=== PATIENT | female | born 1940 | race Caucasian/White ===

== ENCOUNTER 2019-06-17 17:05 | Inpatient (IN) | payer MEDICARE, MEDICAID ==
[2019-06-17 18:23] LABS: #Eosinphils 0.2 thou/uL (0.0-0.7); #Monocytes 0.3 thou/uL (0.11-0.59); #Neutrophils 1.7 thou/uL (1.40-6.50); %Basophils 1.5 % (0.0-1.0); %Eosinophils 7.2 % (0.0-10.0); %Neutrophils 52.3 % (42.0-75.0); Hemoglobin 7.1 g/dL (12.0-16.0); Mean Corpuscular HGB CONC 32.9 g/dL (32.0-36.0); Mean Corpuscular Hemoglobin 29.3 pg (27.0-31.0); Mean Platelet Volume 6.7 fL (7.4-10.4); Platelet Count 130 thou/uL (130-400); RBC Distribution Width 13.4 % (11.5-14.5); Red Blood Cell (RBC) Count 2.42 mill/uL (4.20-5.40); White Blood Cell (WBC) Count 3.2 thou/uL (4.8-10.8)
[2019-06-17 18:29] LABS: INR-International Normal Ratio 1.3; PTT 31.9 SEC (22.9-36.1); Prothrombin Time 15.9 SEC (12.0-14.7)
[2019-06-17 18:40] LABS: ALT (SGPT) 11 U/L (8-55); AST (SGOT) 17 U/L (5-34); Albumin 2.8 g/dL (3.4-4.8); Alkaline Phosphatase 106 U/L (40-110); Anion Gap 11 mmol/L (10-20); BUN (Urea Nitrogen) 16 mg/dL (9.8-20.1); Bilirubin, Total 0.3 mg/dL (0.2-1.2); Calc. Creatinine Clearance 0 mL/min (70-130); Calcium 8.2 mg/dL (7.8-10.44); Carbon Dioxide 22 mmol/L (23-31); Chloride 108 mmol/L (98-107); Estimated GFR-MDRD 52; Globulin 3.5 g/dL (2.4-3.5); Glucose 155 mg/dL (83-110); Potassium 4.3 mmol/L (3.5-5.1); Protein, Total 6.3 g/dL (6.0-8.3); Sodium 137 mmol/L (136-145)
[2019-06-17 21:24] LABS: Bacteria/HPF 4+ HPF (None Seen); Bilirubin Negative (Negative); Blood, Urine Negative (Negative); Clarity Turbid (Clear); Glucose, Urine (Dipstick) Normal (Negative); Leukocyte 250 Leu/uL (Negative); Nitrite 2+ (Negative); Protein, Urine (Dipstick) Negative (Neg-Trace); Urobilinogen Normal mg/dL (Less than 2)
[2019-06-17 21:43] LABS: Troponin I 0.011 ng/mL (< 0.028)
[2019-06-17 21:44] VITALS: BMI 32.5
[2019-06-17 23:06] LABS: #Basophils 0.1 thou/uL (0.0-0.2); #Eosinphils 0.4 thou/uL (0.0-0.7); #Lymphocytes 1.4 thou/uL (1.20-3.40); #Monocytes 0.4 thou/uL (0.11-0.59); #Neutrophils 1.9 thou/uL (1.40-6.50); %Basophils 1.2 % (0.0-1.0); %Eosinophils 9.2 % (0.0-10.0); %Monocytes 9.8 % (0.0-10.0); %Neutrophils 46.7 % (42.0-75.0); Hemoglobin 8.4 g/dL (12.0-16.0); Mean Corpuscular HGB CONC 33.4 g/dL (32.0-36.0); Mean Corpuscular Hemoglobin 29.9 pg (27.0-31.0); Mean Corpuscular Volume 89.5 fL (78.0-98.0); Mean Platelet Volume 7.3 fL (7.4-10.4); Platelet Count 143 thou/uL (130-400); RBC Distribution Width 13.4 % (11.5-14.5); Red Blood Cell (RBC) Count 2.81 mill/uL (4.20-5.40); White Blood Cell (WBC) Count 4.1 thou/uL (4.8-10.8)
[2019-06-17 23:24] LABS: Troponin I 0.022 ng/mL (< 0.028)
[2019-06-18] MEDS ORDERED: hydrALAZINE 20 MG/ML VIAL SLOW IVP PRN (01:39)
[2019-06-18] MEDS ORDERED: Ondansetron ODT 4 MG TAB PO PRN (01:39)
[2019-06-18] MEDS ORDERED: Dextrose 50% Abboject 50 ML SYRINGE SLOW IVP PRN (01:39)
[2019-06-18] MEDS ORDERED: Ondansetron PF 4 MG/2 ML Vial IVP PRN (01:39)
[2019-06-18] MEDS ORDERED: Dextrose 5% in Water 1,000 ML IV PRN (01:39)
[2019-06-18] MEDS ORDERED: Gabapentin 100 MG CAP PO SCH (02:15)
[2019-06-18] MEDS ORDERED: rOPINIRole HCl 1 MG TAB PO SCH (02:15)
[2019-06-18] MEDS ORDERED: tiZANidine HCl 4 MG TAB PO SCH (02:15)
[2019-06-18 02:18] LABS: #Basophils 0.1 thou/uL (0.0-0.2); #Eosinphils 0.3 thou/uL (0.0-0.7); #Lymphocytes 1.1 thou/uL (1.20-3.40); #Monocytes 0.4 thou/uL (0.11-0.59); #Neutrophils 2.4 thou/uL (1.40-6.50); %Basophils 1.2 % (0.0-1.0); %Eosinophils 7.1 % (0.0-10.0); %Lymphocytes 25.5 % (21.0-51.0); %Monocytes 9.5 % (0.0-10.0); %Neutrophils 56.7 % (42.0-75.0); Hemoglobin 8.4 g/dL (12.0-16.0); Mean Corpuscular HGB CONC 33.7 g/dL (32.0-36.0); Mean Corpuscular Hemoglobin 30.1 pg (27.0-31.0); Mean Corpuscular Volume 89.1 fL (78.0-98.0); Mean Platelet Volume 6.9 fL (7.4-10.4); Platelet Count 150 thou/uL (130-400); RBC Distribution Width 13.2 % (11.5-14.5); Red Blood Cell (RBC) Count 2.79 mill/uL (4.20-5.40); White Blood Cell (WBC) Count 4.2 thou/uL (4.8-10.8)
[2019-06-18 02:39] LABS: Troponin I Less than 0.010 ng/mL (< 0.028)
[2019-06-18 02:42] LABS: Anion Gap 13 mmol/L (10-20); BUN (Urea Nitrogen) 16 mg/dL (9.8-20.1); Calc. Creatinine Clearance 65 mL/min (70-130); Calcium 8.2 mg/dL (7.8-10.44); Carbon Dioxide 21 mmol/L (23-31); Chloride 109 mmol/L (98-107); Estimated GFR-MDRD 53; Glucose 272 mg/dL (83-110); Sodium 139 mmol/L (136-145)
--- NOTE | 2019-06-18 02:58 | HP ---
PRIMARY CARE PHYSICIAN: Dr. Alvarez in [place]. CHIEF COMPLAINT: Bright red blood per rectum. HISTORY OF PRESENT ILLNESS: Ms. Lee is a very pleasant 79-year-old female who has a history of hypertension, diabetes, and hypothyroidism. She is also functionally bed-bound. However, she does live independently. She is a poor historian, however, and jumps from subject to subject. Therefore, it is very difficult to get a full history, but she says that about 2 days ago, she started noticing bright red blood per rectum. She thought it could be due to her hemorrhoids because she had seen a surgeon who had planned to do hemorrhoid surgery on her, but she says she had put it off due to some dental work that she was having done. However, she says that since Tuesday, the bleeding was much more than she is used to. She says she basically filled the commode with blood four times and when she would try to go to stand up, it would just come through. She says she soaked up two Pull-Ups as well as some pads and as a result, she called EMS to come evaluate her. They suggested that she come to the hospital, which she went to the [facility] in [place]. There, she was found to have a hemoglobin of around 6.1, and she is being transferred here for further evaluation. The patient denies having any abdominal pain. She says it feels "just kind of funny" and they are more like she is anxious. She has had some rectal pain off and on but complains mostly of chronic low back pain and pain in her hips, which she has had for years. Otherwise, no other complaints. REVIEW OF SYSTEMS: All systems were reviewed and are negative, except for that mentioned in the history of present illness. PAST MEDICAL HISTORY: Significant for hypertension, diabetes, seizure-like disorder, hypothyroidism, depressions, scoliosis, chronic low back pain, and restless legs syndrome. PAST SURGICAL HISTORY: She has had multiple back surgeries, two hip surgeries, hysterectomy, cholecystectomy, bilateral tubal ligations, , shoulder replacement surgery, annuloplasty, and cataract surgery. ALLERGIES: TO INVOKANA, PRISTIQ, VYTORIN, BENICAR, CELEBREX, FOSAMAX, AMITRIPTYLINE, METFORMIN, AMLODIPINE, SIMVASTATIN, BENICAR HYDROCHLOROTHIAZIDE, CODEINE, MORPHINE, DIAZEPAM, STATINS, SULFA, AND HYDROCODONE. SOCIAL HISTORY: She is legally from her and lives alone. She would like to be a full code. She lives independently. She is a nonsmoker. She occasionally drinks wine. She is bed bound as previously mentioned, but she can transfer herself and she gets around with the help of assistants who drive for her and she has daily in-home care. FAMILY HISTORY: Significant for leukemia in her mother as well as her oldest son who as a result of this and also diabetes runs in the family. CURRENT MEDICATIONS: Include; 1. Venlafaxine 150 mg at bedtime. 2. Tramadol 50 mg q.6 as needed. 3. Torsemide 20 mg daily. 4. Tizanidine 4 mg p.o. t.i.d. 5. Docusate sodium 8.6 mg 2 tablets at bedtime. 6. Ropinirole 3 mg at bedtime. 7. MiraLAX 17 g twice daily. 8. Nifedipine extended release 30 mg daily. 9. Levothyroxine 125 mcg p.o. daily. 10. Levemir 15 units subcu at bedtime. 11. Gabapentin 100 mg at bedtime. 12. Toviaz 4 mg at bedtime. 13. Duloxetine 30 mg daily. 14. Vitamin D3 of 2000 units p.o. daily. 15. Carvedilol 12.5 mg twice a day. 16. Symbicort 80/4.5 two puffs twice daily. 17. Aspirin 81 mg at bedtime. 18. Ventolin inhaler twice a day. 19. Tylenol 325 mg q.6. PHYSICAL EXAMINATION: GENERAL: She is alert and oriented. She appears to be in no acute distress. VITAL SIGNS: Blood pressure was 111/54, heart rate 78, respiratory rate of 18, temperature is 99.3, and O2 sats 99% on room air. HEENT: Pupils are equal, round, and reactive. Extraocular muscles are intact. Her sclerae are anicteric. Throat, no erythema, no exudates. NECK: No adenopathy. No bruits. LUNGS: Clear. No wheezing. No rales. No rhonchi. CARDIOVASCULAR: She has a normal S1, S2. I did not appreciate an S3 or S4. No murmurs, clicks, or rubs. ABDOMEN: Obese. It is soft, nontender, and nondistended. Positive for bowel sounds. No rebound. No guarding. EXTREMITIES: She has chronic venous stasis changes. Mild erythema, 1 to 2+ pitting edema. Palpable dorsalis pedis pulses. NEUROLOGIC: She has generalized weakness in both lower extremities. Upper extremities are intact. SKIN AND INTEGUMENT: Again, chronic venous stasis changes. LABORATORY RESULTS: Her INR is 1.2. Sodium 136, potassium 4.5, chloride is 107, BUN is 17, creatinine 1.15, and glucose is 222. Hemoglobin 6.7, white blood cell count 4.1, hematocrit is 20.8, and platelet count is 125. ASSESSMENT: 1. This is a pleasant 79-year-old female, who is being admitted for lower gastrointestinal bleed, likely due to diverticulosis versus hemorrhoid disease, although the degree of bleeding seems to be a bit more than what would be expected for hemorrhoidal bleeding. She also has acute blood loss anemia. She will be admitted to telemetry. She has already been transfused [address] her on IV Protonix. Clear liquids until the a.m. and consult GI for further recommendations and monitor H and H serially. 2. Hypertension. She will likely need p.r.n. medications until she is tolerating p.o. 3. Diabetes mellitus. Again, we will place her on a sliding scale insulin and cut her home dose of insulin in half due to low oral intake. 4. Hypothyroidism. She appears to be clinically euthyroid. Continue Synthroid when earliest available. 5. Chronic low back pain and restless legs syndrome. Continue symptom management. Job ID: [id number]
[2019-06-18] MEDS: traMADol HCl 50 MG TAB PO PRN ×4 (04:55→23:51)
[2019-06-18] MEDS: Levothyroxine Sodium 125 MCG TAB PO SCH (04:55)
[2019-06-18] MEDS: Mometasone/Formoterol 120 PUFF INHALER INH SCH ×2 (07:26→19:29)
[2019-06-18] MEDS: PROVENTIL INHALER 6.7 G (200 INHALATIONS) INH SCH ×2 (07:27→19:29)
[2019-06-18] MEDS: Carvedilol 25 MG TAB PO SCH (09:49)
[2019-06-18] MEDS: DULoxetine 30 MG CAP PO SCH (09:50)
[2019-06-18] MEDS: Torsemide 20 MG TAB PO SCH (09:51)
[2019-06-18] MEDS: Polyethylene Glycol 3350 17 GM Packet PO SCH ×2 (09:51→22:00)
[2019-06-18] MEDS: Pantoprazole 40 MG VIAL IVP SCH ×2 (09:51→22:00)
[2019-06-18] MEDS: tiZANidine HCl 4 MG TAB PO SCH ×3 (09:51→22:00)
[2019-06-18] MEDS: Trospium 20 MG TAB PO SCH ×2 (09:51→22:00)
[2019-06-18] MEDS: HumaLOG 300 UNITS/3 ML VIAL SC PRN ×3 (10:26→22:46)
[2019-06-18] MEDS ORDERED: GoLYTELY 4,000 ml Bottle PO SCH (12:00)
--- NOTE | 2019-06-18 14:09 | PDOC.HOSPP ---
- Subjective Encounter Date: 06/18/19 Encounter Time: 10:15 Subjective: pt up in chair no complains of BBPR. - Objective Vital Signs & Weight: Vital Signs (12 hours) Temp Pulse Resp BP Pulse Ox 06/18/19 12:47 98.1 F 95 14 112/57 L 95 06/18/19 08:28 98.9 F 87 16 101/55 L 97 06/18/19 04:10 98.9 F 93 18 91/43 L 96 Weight Admit Weight 207 lb 8 oz Weight 207 lb 8 oz I&O: 06/17/19 06/18/19 06/19/19 06:59 06:59 06:59 Intake Total 500 Output Total 700 Balance -200 Result Diagrams: 06/18/19 02:03 06/18/19 02:03 Additional Labs: Accuchecks 06/18/19 06/18/19 06/17/19 11:14 07:38 21:58 POC Glucose 233 H 209 H 155 H Hospitalist ROS - Review of Systems Cardiovascular: denies: chest pain, palpitations, orthopnea, paroxysmal noc. dyspnea, edema, light headedness, other Gastrointestinal: denies: nausea, vomiting, abdominal pain, diarrhea, constipation, melena, hematochezia, other Genitourinary: denies: dysuria, frequency, incontinence, hematuria, retention, other - Medication Medications: Active Medications Generic Name Dose Route Start Last Admin Trade Name Freq PRN Reason Stop Dose Admin Albuterol Sulfate 2 puff 06/18/19 09:00 06/18/19 07:27 Proventil Hfa INH 2 puff BID SHANTEL Administration Carvedilol 12.5 mg 06/18/19 08:00 06/18/19 09:49 Coreg PO Not Given BID- SHANTEL Duloxetine HCl 30 mg 06/18/19 09:00 06/18/19 09:50 Cymbalta PO 30 mg DAILY SHANTEL Administration Insulin Human Lispro 0 units 06/18/19 01:39 06/18/19 10:26 Humalog SC 4 unit .MODERATE SLIDING SC PRN Administration Moderate Correctional Scale Levothyroxine Sodium 125 mcg 06/18/19 06:00 06/18/19 04:55 Synthroid PO 125 mcg 0600 SHANTEL Administration Mometasone Furoate/Formoterol Fumar 2 puff 06/18/19 06:30 06/18/19 07:26 Dulera 100 Mcg/5 Mcg Inhaler INH 2 puff BID-RT SHANTEL Administration Pantoprazole Sodium 40 mg 06/18/19 09:00 06/18/19 09:51 Protonix IVP 40 mg Q12HR SHANTEL Administration Polyethylene Glycol 17 gm 06/18/19 09:00 06/18/19 09:51 Miralax PO 17 gm BID SHANTEL Administration Tizanidine HCl 4 mg 06/18/19 09:00 06/18/19 09:51 Zanaflex PO 4 mg TID SHANTEL Administration Torsemide 20 mg 06/18/19 09:00 06/18/19 09:51 Demadex PO Not Given DAILY SHANTEL Tramadol HCl 50 mg 06/18/19 04:41 06/18/19 11:56 Ultram PO 50 mg Q6H PRN Administration Pain Trospium 20 mg 06/18/19 09:00 06/18/19 09:51 Trospium PO 20 mg BID SHANTEL Administration - Exam Eye - other findings: pt appear pale Neck: negative: supple, symmetric, no JVD, no thyromegaly, no lymphadenopathy, no carotid bruit, JVD Heart: negative: RRR, no murmur, no gallops, no rubs, normal peripheral pulses, irregular, diminshed peripheral pulses, murmur present, II/IV, III/IV Respiratory: negative: CTAB, no wheezes, no rales, no ronchi, normal chest expansion, no tachypnea, normal percussion, rales, rhonchi, tachypneic, wheezes Hosp A/P (1) Chronic back pain Code(s): M54.9 - DORSALGIA, UNSPECIFIED; G89.29 - OTHER CHRONIC PAIN Status: Chronic (2) DM2 (diabetes mellitus, type 2) Status: Chronic (3) HTN (hypertension) Code(s): I10 - ESSENTIAL (PRIMARY) HYPERTENSION Status: Chronic (4) Bright red blood per rectum Code(s): K62.5 - HEMORRHAGE OF ANUS AND RECTUM Status: Acute - Plan HH has been stable, gi consulted. will continue insulin.
--- NOTE | 2019-06-18 14:54 | CON ---
DATE OF CONSULTATION: 06/18/2019 HISTORY OF PRESENT ILLNESS: Ms. Lee is an 79-year-old female, who was transferred to the hospital here yesterday from [facility] for rectal bleeding. She states she had been started bleeding on Tuesday, which was 3 days ago, the blood was just dripping from the bottom that was bright red. There was no associated pain. In the past, it has been felt this was probably hemorrhoidal. She has been seen by Dr. Root at [facility] in [place] and the plan was to do a hemorrhoidectomy, although she was having some dental work done, so that had been put on hold. With this presentation, as she had quite a bit of bleeding, the patient states Dr. Root was contacted, who saw her at [facility] when she was in emergency room, there was some concern that maybe there was something else bleeding higher up and so the decision was made to transfer her to a facility, where colonoscopy was available. She has had no further bleeding since admission. She denies any pain. She denies any shortness of breath. She denies any heavy use of NSAIDs other than baby aspirin. She does not take any of her blood thinners. She denies any melena or hematemesis, abdominal pain, or weight loss. Presently, she has been transfused and her hemoglobin has increased from 6.7 to 8.4. PAST MEDICAL HISTORY: Chronic back pain, for which she has had multiple surgeries and had an implantable pain pump in her left abdominal wall, this is nonfunctioning at this time, this limits her ability to get around and she cannot walk. History of diabetes, hypertension, hypothyroidism, depression, scoliosis, restless legs syndrome, overactive bladder, chronic constipation, hyperlipidemia, hypertriglyceridemia. PAST SURGICAL HISTORY: She has apparently had a previous hemorrhoidectomy, multiple back surgeries, two hip surgeries, hysterectomy, cholecystectomy, tubal ligation, , shoulder replacement, previous nerve stimulator. REVIEW OF SYSTEMS: The patient denies any chest pain or shortness of breath. There is dyspnea. She does not really walk or exert herself she does not get much exercise due to her immobility. She has a chronic little bit of leg swelling. She has had chronic sores in her back as she is bedbound. ALLERGIES: DOCUMENTED IN THE ADMISSION H AND P, BY DR. KERI VILLANUEVA ON 06/17/2019. SOCIAL HISTORY: She is from her . Lives alone. She is nonsmoker. Occasionally drinks wine. She can transfer herself with the help of assistance. She has in-home care. FAMILY HISTORY: Leukemia in mother and older son. Diabetes runs in the family. MEDICATIONS: Venlafaxine, tramadol, torsemide, tizanidine, dulcolax, Ropinirole, MiraLAX, nifedipine, levothyroxine, Levemir, gabapentin, Toviaz, duloxetine, vitamin D3, carvedilol, Symbicort, aspirin, Ventolin, and Tylenol. PHYSICAL EXAMINATION: GENERAL: She is alert and oriented. She was actually sleeping when I came in, but woke up very quickly. She is able to relate her history. She is in no distress. VITAL SIGNS: Temperature is 98, pulse , blood pressure 105/55. HEENT: Conjunctivae and sclerae are clear. Oropharynx without lesions. NECK: Supple. No adenopathy. ABDOMEN: Soft and nontender. LUNGS: Clear. HEART: Regular rate and rhythm. EXTREMITIES: Reveal brawny edema. She has some mild erythema in her legs. She has a skin dressing on her shins anteriorly and also on her sacrum. RECTAL: Reveals brown stool. No overt large lesions or large hemorrhoids. NEUROLOGIC: Mental status; she is alert and oriented to person, place, and time. LABORATORY DATA: White count is 4.2. Hemoglobin is 8.7, it was 7.1 on arrival here, she received blood for hemoglobin of 6 in [place] before transfer. Platelet count is 150. INR is 1.3. Sodium 139, potassium 4, bicarb is 21, chloride 109, BUN is 16, creatinine is 1.01, albumin was 2.8, protein 6.3. Troponins were negative. Liver function tests were normal. ASSESSMENT: 1. Lower gastrointestinal bleeding, likely rectal outlet in some way. She does not have any large hemorrhoids palpable on rectal examination. No perianal lesions. It is unclear what her baseline hemoglobin was in [place] before all this, but I suspect it probably was not normal as there has been ongoing bleeding before this and talk of hemorrhoid surgery before this as well. She has some brown stool in her rectal vault now and there is no active bleeding. This would make upper GI bleeding much less likely. 2. She is hemodynamically stable presently. 3. Poor mobility, which is going to make it difficult for her to tolerate any bowel preparation. PLAN: I talked with the patient about options including observation as the bleeding has stopped or colonoscopy to try to investigate the cause of bleeding. I have explained her the colonoscopy and the requirement for the prep and the fact that she is bedbound, it is going to make this difficult for her. She would like to go and proceed with that though to figure out if she really needs to even have hemorrhoid surgery, is that her bleeding is coming from something higher up. This is not unreasonable as she has a very benign rectal exam with no overt large hemorrhoids and no perianal lesions to explain the bleeding. We will try to get her a bowel prep and plan for colonoscopy tomorrow. Job ID: [id number]
[2019-06-18] MEDS: Gabapentin 100 MG CAP PO SCH (22:00)
[2019-06-18] MEDS: rOPINIRole HCl 1 MG TAB PO SCH (22:00)
[2019-06-18] MEDS: Venlafaxine HCl XR 150 MG CAP PO SCH (22:00)
[2019-06-18] MEDS: Insulin Glargine 8 UNITS in Pre-Filled Syringe 1 EACH SC SCH (22:47)
[2019-06-19] MEDS: Levothyroxine Sodium 125 MCG TAB PO SCH (04:57)
[2019-06-19] MEDS: traMADol HCl 50 MG TAB PO PRN ×2 (06:13→21:00)
[2019-06-19 07:22] LABS: #Eosinphils 0.4 thou/uL (0.0-0.7); #Lymphocytes 1.1 thou/uL (1.20-3.40); #Monocytes 0.3 thou/uL (0.11-0.59); #Neutrophils 2.3 thou/uL (1.40-6.50); %Basophils 0.9 % (0.0-1.0); %Lymphocytes 26.4 % (21.0-51.0); %Monocytes 7.9 % (0.0-10.0); %Neutrophils 54.7 % (42.0-75.0); Hemoglobin 8.9 g/dL (12.0-16.0); Mean Corpuscular HGB CONC 34.3 g/dL (32.0-36.0); Mean Corpuscular Hemoglobin 31.1 pg (27.0-31.0); Mean Corpuscular Volume 90.6 fL (78.0-98.0); Mean Platelet Volume 6.5 fL (7.4-10.4); Platelet Count 161 thou/uL (130-400); RBC Distribution Width 13.7 % (11.5-14.5); Red Blood Cell (RBC) Count 2.87 mill/uL (4.20-5.40); White Blood Cell (WBC) Count 4.1 thou/uL (4.8-10.8)
[2019-06-19 07:37] LABS: Anion Gap 14 mmol/L (10-20); BUN (Urea Nitrogen) 12 mg/dL (9.8-20.1); Calc. Creatinine Clearance 75 mL/min (70-130); Calcium 8.5 mg/dL (7.8-10.44); Carbon Dioxide 24 mmol/L (23-31); Chloride 104 mmol/L (98-107); Estimated GFR-MDRD 62; Glucose 152 mg/dL (83-110); Potassium 3.7 mmol/L (3.5-5.1); Sodium 138 mmol/L (136-145)
[2019-06-19] MEDS: PROVENTIL INHALER 6.7 G (200 INHALATIONS) INH SCH ×2 (07:45→21:53)
[2019-06-19] MEDS: Mometasone/Formoterol 120 PUFF INHALER INH SCH ×3 (07:45→21:56)
[2019-06-19] MEDS ORDERED: Lidocaine 1% PF 5 ML VIAL ONE (09:43)
[2019-06-19] MEDS ORDERED: PROPOFOL 200 MG/20 ML VIAL ONE (09:43)
[2019-06-19] MEDS ORDERED: Fleet Enema 133 ML BOT PR SCH (09:45)
[2019-06-19] MEDS ORDERED: Ketamine 50 MG/ML (10ML VIAL) ONE (12:06)
--- NOTE | 2019-06-19 12:40 | PDOC.HOSPP ---
- Subjective Encounter Date: 06/19/19 Encounter Time: 10:30 Subjective: pt up in bed no complains. she is nervous about her surgery. - Objective Vital Signs & Weight: Vital Signs (12 hours) Temp Pulse Resp BP Pulse Ox 06/19/19 07:45 97.8 F 76 20 141/64 H 99 06/19/19 03:51 98.2 F 77 17 112/59 L 97 Weight Admit Weight 207 lb 8 oz Weight 207 lb 8 oz I&O: 06/18/19 06/19/19 06/20/19 06:59 06:59 06:59 Intake Total 500 5700 Output Total 700 1650 Balance -200 4050 Result Diagrams: 06/19/19 07:07 06/19/19 07:07 Additional Labs: Accuchecks 06/19/19 06/19/19 06/18/19 10:53 05:23 20:34 POC Glucose 141 H 173 H 201 H 06/18/19 17:12 POC Glucose 221 H Hospitalist ROS - Review of Systems Cardiovascular: denies: chest pain, palpitations, orthopnea, paroxysmal noc. dyspnea, edema, light headedness, other Gastrointestinal: denies: nausea, vomiting, abdominal pain, diarrhea, constipation, melena, hematochezia, other Genitourinary: denies: dysuria, frequency, incontinence, hematuria, retention, other - Medication Medications: Active Medications Generic Name Dose Route Start Last Admin Trade Name Freq PRN Reason Stop Dose Admin Albuterol Sulfate 2 puff 06/18/19 09:00 06/19/19 07:45 Proventil Hfa INH 2 puff BID SHANTEL Administration Carvedilol 12.5 mg 06/18/19 08:00 06/18/19 09:49 Coreg PO Not Given BID-WM SHANTEL Duloxetine HCl 30 mg 06/18/19 09:00 06/18/19 09:50 Cymbalta PO 30 mg DAILY SHANTEL Administration Gabapentin 100 mg 06/18/19 21:00 06/18/19 22:00 Neurontin PO 100 mg HS SHANTEL Administration Insulin Glargine 8 units/ 0.08 mls @ 0 mls/hr 06/18/19 21:00 06/18/19 22:47 Miscellaneous Medication SC 0.08 mls HS SHANTEL Administration Insulin Human Lispro 0 units 06/18/19 01:39 06/18/19 18:02 Humalog SC 4 unit .MODERATE SLIDING SC PRN Administration Moderate Correctional Scale Insulin Human Lispro 0 units 06/18/19 01:39 06/18/19 22:46 Humalog SC 2 unit .BEDTIME SLIDING SC PRN Administration Bedtime Correctional Scale Levothyroxine Sodium 125 mcg 06/18/19 06:00 06/19/19 04:57 Synthroid PO 125 mcg 0600 SHANTEL Administration Mometasone Furoate/Formoterol Fumar 2 puff 06/18/19 06:30 06/19/19 07:45 Dulera 100 Mcg/5 Mcg Inhaler INH 2 puff BID-RT SHANTEL Administration Pantoprazole Sodium 40 mg 06/18/19 09:00 06/18/19 22:00 Protonix IVP 40 mg Q12HR SHANTEL Administration Polyethylene Glycol 17 gm 06/18/19 09:00 06/18/19 22:00 Miralax PO Not Given BID SHANTEL Ropinirole HCl 3 mg 06/18/19 21:00 06/18/19 22:00 Requip PO 3 mg HS SHANTEL Administration Tizanidine HCl 4 mg 06/18/19 09:00 06/18/19 22:00 Zanaflex PO 4 mg TID SHANTEL Administration Torsemide 20 mg 06/18/19 09:00 06/18/19 09:51 Demadex PO Not Given DAILY SHANTEL Tramadol HCl 50 mg 06/18/19 04:41 06/19/19 06:13 Ultram PO 50 mg Q6H PRN Administration Pain Trospium 20 mg 06/18/19 09:00 06/18/19 22:00 Trospium PO 20 mg BID SHANTEL Administration Venlafaxine HCl 150 mg 06/18/19 21:00 06/18/19 22:00 Effexor Xr PO 150 mg HS SHANTEL Administration - Exam Heart: negative: RRR, no murmur, no gallops, no rubs, normal peripheral pulses, irregular, diminshed peripheral pulses, murmur present, II/IV, III/IV Respiratory: negative: CTAB, no wheezes, no rales, no ronchi, normal chest expansion, no tachypnea, normal percussion, rales, rhonchi, tachypneic, wheezes Gastrointestinal: negative: soft, non-tender, non-distended, normal bowel sounds , no palpable masses, no hepatomegaly, no splenomegaly, no bruit, no guarding, no rigidity, tender to palpation, distended, diminished bowl sounds, voluntary guarding Hosp A/P (1) Chronic back pain Code(s): M54.9 - DORSALGIA, UNSPECIFIED; G89.29 - OTHER CHRONIC PAIN Status: Chronic (2) DM2 (diabetes mellitus, type 2) Status: Chronic (3) HTN (hypertension) Code(s): I10 - ESSENTIAL (PRIMARY) HYPERTENSION Status: Chronic (4) Bright red blood per rectum Code(s): K62.5 - HEMORRHAGE OF ANUS AND RECTUM Status: Acute - Plan HH has been stable, gi consulted. will continue insulin. 06/19 hh stable, pt undergoing colonoscopy today.
[2019-06-19] MEDS ORDERED: HYDROmorphone 2 MG/ML VIAL ONE (12:48)
[2019-06-19] MEDS ORDERED: Promethazine HCl 25 MG/ML VIAL IM PRN (13:03)
[2019-06-19] MEDS ORDERED: Ondansetron HCl/PF 4 MG/2 ML Vial IVP PRN (13:03)
[2019-06-19] MEDS ORDERED: Promethazine HCl 25 MG/ML VIAL SLOW IVP PRN (13:03)
[2019-06-19] MEDS ORDERED: HYDROmorphone 2 MG/ML VIAL SLOW IVP PRN (13:03)
[2019-06-19] MEDS: Pantoprazole 40 MG VIAL IVP SCH ×2 (14:56→20:57)
[2019-06-19] MEDS: Polyethylene Glycol 3350 17 GM Packet PO SCH ×2 (14:56→21:00)
[2019-06-19] MEDS: tiZANidine HCl 4 MG TAB PO SCH ×3 (14:57→20:59)
[2019-06-19] MEDS: Trospium 20 MG TAB PO SCH ×2 (14:57→20:57)
[2019-06-19] MEDS: DULoxetine 30 MG CAP PO SCH (15:27)
--- NOTE | 2019-06-19 17:08 | OP ---
DATE OF PROCEDURE: 06/19/2019 ORDER PACKER SURGEON: None. PROCEDURE PERFORMED: Colonoscopy, diagnostic. INDICATIONS: 1. Rectal bleeding. 2. Anemia. MEDICATIONS: See Anesthesia record. FINDINGS: After discussion of the risks, benefits, and alternatives of the procedure, informed consent was obtained and witnessed. Pre-endoscopic cardiopulmonary examination was satisfactory. Time-out was performed before sedation was achieved. Sedation was achieved with Anesthesia assistance in the endoscopy unit. Due to the patient's severe scoliosis, pain and request, we performed the procedure with the patient in the supine position, actually turned a bit to the right. Digital rectal exam was performed and this demonstrated large external hemorrhoids. A Pentax adult colonoscope was inserted into the anus and passed forward in the usual fashion. The quality of the bowel preparation was fair in the left colon and poor in the right colon with a large amount of semi-liquid stool and particulate matter, which made lavage and suctioning of all the stool matter quite difficult. Due to difficulty with the patient positioning as well as the poor quality of the prep, I was unable to definitively identify the appendiceal orifice, though I do estimate that the scope was advanced to the level of the mid ascending colon at least, a distance of 110 cm. The colonoscope was slowly withdrawn in a gradual and circumferential manner with careful examination of the colonic mucosa. There were no mucosal abnormalities demonstrated, within the limits of the patient's poor bowel preparation. There was no evidence of any old blood or active bleeding throughout the colon. There were no mass lesions or polyps visualized. In the sigmoid colon, there were several diverticula, which were nonbleeding. Retroflexion in the rectum demonstrates large internal hemorrhoids. The colonoscope was completely withdrawn and the patient allowed to recover. The patient tolerated the procedure well. There were no immediate postprocedure complications. IMPRESSION: 1. Large internal and external hemorrhoids. 2. Fair bowel preparation of the left colon, and poor bowel preparation in the right colon, examined to the ascending colon, but unable to definitively identify the appendiceal orifice. 3. Sigmoid diverticulosis. 4. Otherwise normal examination, within the limits of the bowel preparation. RECOMMENDATIONS: 1. Use stool softeners 1 to 2 times daily. 2. Advance diet. 3. If overt rectal bleeding and worsening anemia becomes a significant issue, would be reasonable to proceed with surgical evaluation as she already had planned for consideration of hemorrhoidectomy. 4. Follow up with Dr. Culver in the outpatient setting if repeat colonoscopy is desired on an outpatient basis. However, given the patient's debility, comorbidities, it would be reasonable to forego any further colonoscopy in the future. GI will sign off, but please call back anytime with questions or concerns. Job ID: [id number]
[2019-06-19] MEDS: Carvedilol 25 MG TAB PO SCH (17:49)
[2019-06-19] MEDS: HumaLOG 300 UNITS/3 ML VIAL SC PRN ×2 (17:51→21:01)
[2019-06-19] MEDS: Insulin Glargine 8 UNITS in Pre-Filled Syringe 1 EACH SC SCH (20:56)
[2019-06-19] MEDS: Gabapentin 100 MG CAP PO SCH (20:56)
[2019-06-19] MEDS: rOPINIRole HCl 1 MG TAB PO SCH (20:58)
[2019-06-19] MEDS: Venlafaxine HCl XR 150 MG CAP PO SCH (20:59)
[2019-06-20] MEDS: traMADol HCl 50 MG TAB PO PRN ×2 (02:34→10:58)
[2019-06-20] MEDS: Levothyroxine Sodium 125 MCG TAB PO SCH (04:57)
[2019-06-20] MEDS: PROVENTIL INHALER 6.7 G (200 INHALATIONS) INH SCH (07:29)
[2019-06-20] MEDS: Mometasone/Formoterol 120 PUFF INHALER INH SCH (07:29)
[2019-06-20] MEDS: Torsemide 20 MG TAB PO SCH (07:57)
[2019-06-20] MEDS: DULoxetine 30 MG CAP PO SCH (07:57)
[2019-06-20] MEDS: Carvedilol 25 MG TAB PO SCH (07:57)
[2019-06-20] MEDS: Trospium 20 MG TAB PO SCH (07:57)
[2019-06-20] MEDS: tiZANidine HCl 4 MG TAB PO SCH ×2 (07:57→14:23)
[2019-06-20] MEDS: HumaLOG 300 UNITS/3 ML VIAL SC PRN ×2 (07:58→10:59)
[2019-06-20] MEDS: Pantoprazole 40 MG VIAL IVP SCH ×2 (07:58→09:44)
[2019-06-20] MEDS: Polyethylene Glycol 3350 17 GM Packet PO SCH (08:09)
[2019-06-20 11:19] VITALS: BP 111/54; TEMP 97.9
--- NOTE | 2019-06-21 06:00 | PQF ---
[employer] Crystal Reports Winform ToluARELY Fishman KARISHMA [id number] [facility]265 [id number] CLINICAL DOCUMENTATION CLARIFICATION FORM: POST DISCHARGE Addendum to original discharge summary date: ____ Late entry note date: __ DATE: 06/21/2019 ATTN:ESTEFANI ALEJO Please exercise your independent, professional judgment in responding to the clarification form. Clinical indicators are provided on the bottom of this form for your review GIB Etiology Please check appropriate box(s): [ x ] GIB due to internal and external Hemorrhoids [ ] GIB due to Sigmoid diverticulosis [ ] GIB due to unknown etiology [ ] Other diagnosis [ ] Unable to determine In addition, please specify: Present on Admission (POA): [ x] Yes [ ] No [ ] Unable to determine For continuity of documentation, please document condition throughout progress notes and discharge summary. Thank You. CLINICAL INDICATORS - SIGNS / SYMPTOMS / LABS Bright Red Blood per rectum - Documented in h&P on 104 by Jonathan Conn MD she thought it could be due to her hemorrhoids because she had seen damon who had planned to do hemorrhoid surgery on her - Documented in h&P on 104 by Jonathan Conn MD GIB due to diverticulosis vs hemorrhoid disease - Documented in h&P on 104 by Jonathan Conn MD Degree of bleeding seems to be a bit more than what would be expected foe hemorrhoid bleeding - Documented in h&P on 104 by Jonathan Conn MD there is no active bleeding - Documented in Consult note on 06/19 by Sumanth Gandhi RISK FACTORS Lower GIB likely rectal outlet in some way, she does not have large hemorrhoids palpable on rectal exam - Documented in Consult note on 06/19 by Sumanth Gandhi HTN DM TREATMENTS: She has already been transfused 2 units - Documented in h&P on 104 by Jonathan Conn MD we will place her IV Protonix - Documented in h&P on 104 by Jonathan Conn MD Colonoscopy has done - OP note [employer] Reports Winform Viewer (This form is maintained as a part of the permanent medical record) 2014 [employer]. All Rights Reserved [email or web address] [not [email or web address]] [email or web address]
--- NOTE | 2019-06-21 15:25 | DIS ---
DATE OF ADMISSION: 06/17/2019 DATE OF DISCHARGE: 06/20/2019 DISCHARGE DIAGNOSES: 1. Bright blood per rectum, most likely secondary to internal external hemorrhoids. 2. Chronic back pain. 3. Diabetes. 4. Hypertension. HOSPITAL COURSE: The patient is a very pleasant 79-year-old female, who initially presented to the hospital on 06/18, with significant bright blood per rectum. She received a blood transfusion 2 units and she was put on IV Protonix and GI was consulted. The patient continued to improve and her hemoglobin was stable. She did undergo a colonoscopy on 06/19, which did not indicate any source of active bleeding, however, indicated large internal external hemorrhoids. Recommended to use stool softeners, which she is already on. The patient's vitals were stable. She will be discharged home. She will follow up with her primary and also Surgery as outpatient for her hemorrhoid. HOME MEDICATIONS: 1. Tramadol 50 mg q.6 hours. 2. Tizanidine 4 mg t.i.d. 3. Venlafaxine 150 mg at bedtime. 4. Torsemide 20 mg daily. 5. Sennalax-S two tablets at bedtime. 6. MiraLAX 17 g p.o. b.i.d. 7. Nifedipine 1 to 2 capsules daily. 8. Levothyroxine 125 mcg daily. 9. Gabapentin 100 mg at bedtime. 10. Toviaz 4 mg at bedtime. 11. Duloxetine 30 mg daily. 12. Carvedilol 12.5 b.i.d. 13. Tylenol 325 q.6 hours p.r.n. 14. Symbicort two puffs twice a day. 15. Albuterol 2 puffs twice a day. 16. Ropinirole 3 tablets at bedtime. I have advised the patient to check her blood pressure before she takes her blood pressure medications since her blood pressure has been very labile. PHYSICAL EXAMINATION: VITAL SIGNS: On discharge, temp 97.8, pulse 68, respirations 20, 95% on room air, blood pressure 111/54. GENERAL: She is awake, alert, and oriented x3. Does not appear in any distress. CV: S1 and S2 present. No murmurs, rubs, or gallops. ABDOMEN: Soft and nontender. Bowel sounds are present x2. Again, she will be discharged home. She will follow up with her primary. Job ID: [id number]
== END 2019-06-20 15:34 | disposition home or self-care (01) | DRG 394 ==
LOC: ERS 17:05 → 2NO 19:29
PROVIDERS: ADMIT Family Medicine; ATTEND Family Medicine
PROC: 0DJD8ZZ Inspection of Lower Intestinal Tract, Via Natural or Artificial Opening Endoscopic (ICD-10-PCS; principal; 2019-06-19)
DX: K64.4 Residual hemorrhoidal skin tags (principal); K92.2 Gastrointestinal hemorrhage, unspecified; D62 Acute posthemorrhagic anemia; K64.8 Other hemorrhoids; I10 Essential (primary) hypertension; E11.9 Type 2 diabetes mellitus without complications; E03.9 Hypothyroidism, unspecified; Z88.8 Allergy status to other drugs, medicaments and biological substances; Z88.5 Allergy status to narcotic agent; Z74.01 Bed confinement status; G40.909 Epilepsy, unspecified, not intractable, without status epilepticus; F32.9 Major depressive disorder, single episode, unspecified; M54.5 Low back pain; G89.29 Other chronic pain; G25.81 Restless legs syndrome; Z98.51 Tubal ligation status; Z90.49 Acquired absence of other specified parts of digestive tract; Z88.2 Allergy status to sulfonamides; Z79.82 Long term (current) use of aspirin; Z79.899 Other long term (current) drug therapy
CPT/HCPCS: 36415; 36416; 36430; 80048; 80053; 81003; 81015; 84484; 85025; 85610; 85730; 86850; 86900; 86901; C9113; J1170; J1815; J2001; J2405; J2704; P9016

== ENCOUNTER 2019-08-17 16:03 | Inpatient (IN) | payer MEDICARE, MEDICAID ==
[~2019-08-17 16:03] MED LIST: Iopamidol-370 76% 500 ML 1 ML ONE
[2019-08-17 16:32] LABS: Bacteria/HPF 2+ HPF (None Seen); Bilirubin Negative (Negative); Blood, Urine 1+ (Negative); Clarity Clear (Clear); Glucose, Urine (Dipstick) Normal (Negative); Leukocyte 500 Leu/uL (Negative); Nitrite 2+ (Negative); Protein, Urine (Dipstick) Negative (Neg-Trace); RBC/HPF 21-50 HPF (0-3); Squamous Epithelial 0-3 HPF (0-3); Urobilinogen Normal mg/dL (Less than 2); WBC/HPF Greater than 50 HPF (0-3)
[2019-08-17] MEDS ORDERED: Fentanyl 100 MCG/2 ML VIAL ONE (17:02)
--- NOTE | 2019-08-17 17:10 | RAD ---
RADIOGRAPH CHEST 1 VIEW: DATE: 08/17/2019 HISTORY: 79-year-old female with sepsis FINDINGS: Patient is very rotated to the right, limiting evaluation of the right medial lung base. The thoracic aorta is tortuous and ectatic. There is no evidence of airspace density, pulmonary edema, or pneumothorax. The lateral costophrenic angles are not effaced. No interval change compared to 10/10/19 17 and 06/20/2018. IMPRESSION: 1) No acute pulmonary findings. 2) ectasia of thoracic aorta.
[2019-08-17 17:29] LABS: ALT (SGPT) 12 U/L (8-55); AST (SGOT) 37 U/L (5-34); Albumin 3.7 g/dL (3.4-4.8); Alkaline Phosphatase 179 U/L (40-110); Anion Gap 13 mmol/L (10-20); BUN (Urea Nitrogen) 22 mg/dL (9.8-20.1); Bilirubin, Total 0.8 mg/dL (0.2-1.2); Calc. Creatinine Clearance 0 mL/min (70-130); Calcium 9.9 mg/dL (7.8-10.44); Carbon Dioxide 28 mmol/L (23-31); Chloride 100 mmol/L (98-107); Estimated GFR-MDRD 30; Glucose 203 mg/dL (83-110); Potassium 3.4 mmol/L (3.5-5.1); Protein, Total 8.7 g/dL (6.0-8.3); Sodium 138 mmol/L (136-145)
[2019-08-17] MEDS ORDERED: cefTRIAXone\\ROCEPHIN 2 GM VIAL ONE (17:34)
[2019-08-17] MEDS ORDERED: Cefepime 2 GM VIAL ONE (17:37)
[2019-08-17 17:42] LABS: #Basophils 0.1 thou/uL (0.0-0.2); #Eosinphils 0.4 thou/uL (0.0-0.7); #Lymphocytes 1.3 thou/uL (1.20-3.40); #Monocytes 0.5 thou/uL (0.11-0.59); #Neutrophils 3.7 thou/uL (1.40-6.50); %Eosinophils 6.6 % (0.0-10.0); %Lymphocytes 22.3 % (21.0-51.0); %Monocytes 8.4 % (0.0-10.0); %Neutrophils 61.7 % (42.0-75.0); Hemoglobin 10.7 g/dL (12.0-16.0); Mean Corpuscular HGB CONC 31.4 g/dL (32.0-36.0); Mean Corpuscular Hemoglobin 27.5 pg (27.0-31.0); Mean Corpuscular Volume 87.7 fL (78.0-98.0); Mean Platelet Volume 7.5 fL (7.4-10.4); Platelet Count 217 thou/uL (130-400); RBC Distribution Width 16.4 % (11.5-14.5); Red Blood Cell (RBC) Count 3.88 mill/uL (4.20-5.40); White Blood Cell (WBC) Count 5.9 thou/uL (4.8-10.8)
[2019-08-17] MEDS ORDERED: Vancomycin 1 GM/200 ML BAG ONE (18:23)
[2019-08-17] MEDS ORDERED: HYDROmorphone 0.5 MG/0.5 ML SYRINGE ONE ×2 (18:51→21:57)
[2019-08-17 19:36] LABS: CKMB 1.3 ng/mL (0-6.6)
[2019-08-17 19:58] LABS: Lactic Acid 1.7 mmol/L (0.5-2.2)
[2019-08-17] MEDS ORDERED: Acetaminophen 325 MG TAB PO PRN (20:05)
[2019-08-17] MEDS ORDERED: Senokot S 8.6-50 MG TAB PO PRN (20:05)
[2019-08-17] MEDS ORDERED: Ondansetron PF 4 MG/2 ML Vial IVP PRN (20:05)
--- NOTE | 2019-08-17 20:11 | CT ---
CT ABDOMEN WITH CONTRAST CT PELVIS WITH CONTRAST: DATE: 08/17/2019 HISTORY: 79-year-old female with abdominal pain and sepsis. COMPARISON: None TECHNIQUE: IV injection of iodinated contrast media: administered. Oral contrast media:Not administered FINDINGS: There is a comminuted and displaced right intertrochanteric fracture, with varus angulation. No callu s visualized. No union. Metallic hardware fixates an old left proximal fracture, with linear metallic instrument in femoral h ead and neck, attached to the long lateral sideplate with multiple screws. Old, healed fracture deformity of left pubis. Multiple posterior midline laminectomy defects and bilateral pedicle screws at lower and upper lumbar spine. Right kidney the is small but has homogeneous normal enhancement similar to that of the left. No hydr onephrosis. No pyelonephritis. No abdominal aortic aneurysm. Hepatic margins are nodular suggestive of cirrhosis. No liver abscess or tumor. Cholecystectomy clips . No obvious pancreatic tumor mass or acute pancreatitis. Mild splenomegaly. Cluster of surgical clips at gastric cardia. No pleural effusion or ascites. No small bowel dilation. Sigmoid colonic diverticulosis without diverticulitis. Boyce catheter within urinary bladder. Diffuse mural thickening of urinary bladder. Air-fluid level in urinary bladder lumen. Appendix and uterus surgically absent. There is a region of intraperitoneal fat stranding representing edema just inferior to the left lobe of liver, surrounding a small, ill-defined, irregularly-shaped fluid collection. Some of the fluid tracks into the hepatic hilum, abutting the main portal vein. In the subcutaneous fat, indenting the left anterolateral abdominal wall, there is a 6.5 x 7.5 x 4 cm well-circumscribed fluid collection with thin short. There is a high density catheter leading from the lateral edge of this, traveling in the subcutaneous fat of the left flank, into the subcutaneous fat posterior to the left dorsal lumbar fascia. After a gap of approximately 1.5 cm, this catheter distally continues into the lumbar and thoracic spinal canal. The gap appears to be disruption. Very severe degenerative disc disease at T11-12 and T12-L1. S-shaped scoliosis of thoracolumbar spine . Multilevel high-grade degenerative disc disease. Severe osteopenia. IMPRESSION: 1) acute or subacute, displaced, comminuted intertrochanteric fracture of the right proximal femur. 2) evidence for cystitis, either chronic or acute. 3) hepatic cirrhosis. 4) splenic varices. 5) thoracolumbar scoliosis and severe spondylosis. 6) small amount of fluid and edema right upper quadrant of the peritoneal cavity, consistent with an infectious or inflammatory process in that location. The origin is uncertain, but one possibility is the gastroduodenal junction
[2019-08-17] MEDS: Heparin 5,000 UNITS/ML VIAL SC SCH (23:18)
[2019-08-17] MEDS: cefTRIAXone\\ROCEPHIN 1 GM in Sodium Chloride 0.9% 100 ML IVPB SCH (23:18)
[2019-08-17] MEDS: 1/2 NS w/KCL 20 mEq 1,000 ML IV SCH (23:18)
[2019-08-17] MEDS: HYDROcodone/Acetaminophen 5/325 mg Tablet PO PRN (23:20)
[2019-08-17] MEDS ORDERED: HYDROmorphone 2 MG/ML VIAL SLOW IVP PRN (23:51)
[2019-08-17 23:55] LABS: Troponin I 0.048 ng/mL (< 0.028)
[2019-08-18] MEDS ORDERED: HYDROmorphone 0.5 MG/0.5 ML SYRINGE SLOW IVP PRN (00:05)
[2019-08-18] MEDS: HYDROmorphone 0.5 MG/0.5 ML SYRINGE SLOW IVP PRN ×2 (00:42→05:56)
[2019-08-18 03:25] VITALS: BMI 29.8
[2019-08-18 05:47] LABS: #Eosinphils 0.4 thou/uL (0.0-0.7); #Lymphocytes 1.6 thou/uL (1.20-3.40); #Monocytes 0.6 thou/uL (0.11-0.59); #Neutrophils 4.3 thou/uL (1.40-6.50); %Basophils 0.6 % (0.0-1.0); %Eosinophils 6.2 % (0.0-10.0); %Monocytes 8.3 % (0.0-10.0); %Neutrophils 61.8 % (42.0-75.0); Mean Corpuscular HGB CONC 32.4 g/dL (32.0-36.0); Mean Corpuscular Hemoglobin 28.3 pg (27.0-31.0); Mean Corpuscular Volume 87.2 fL (78.0-98.0); Mean Platelet Volume 7.1 fL (7.4-10.4); Platelet Count 152 thou/uL (130-400); RBC Distribution Width 16.5 % (11.5-14.5); Red Blood Cell (RBC) Count 3.89 mill/uL (4.20-5.40)
[2019-08-18 06:00] LABS: ALT (SGPT) 11 U/L (8-55); AST (SGOT) 32 U/L (5-34); Albumin 3.2 g/dL (3.4-4.8); Alkaline Phosphatase 157 U/L (40-110); Anion Gap 17 mmol/L (10-20); BUN (Urea Nitrogen) 19 mg/dL (9.8-20.1); Bilirubin, Total 0.8 mg/dL (0.2-1.2); Calc. Creatinine Clearance 40 mL/min (70-130); Calcium 9.2 mg/dL (7.8-10.44); Carbon Dioxide 20 mmol/L (23-31); Chloride 106 mmol/L (98-107); Estimated GFR-MDRD 36; Globulin 4.8 g/dL (2.4-3.5); Glucose 220 mg/dL (83-110); Potassium 3.8 mmol/L (3.5-5.1); Sodium 139 mmol/L (136-145)
[2019-08-18 08:20] LABS: Base Excess (BEa) 2.4 mEq/L (-2.0 to +3.0); CO2 Tension 41.7 mmHg (35.0-45.0); Calcium, Ionized 1.21 mmol/L (1.12-1.30); Carboxyhemoglobin (COHb) 2.2 gm% (0.0-3.0); Hemoglobin (Hb) 10.8 g/dL (12.0-16.0); O2 Tension (PaO2) 70.3 mmHg (> 60.0); Potassium - ABG Lab 3.69 mmol/L (3.70-5.30); pH, Arterial 7.43 (7.35-7.45)
[2019-08-18 08:22] LABS: ALV-art Gradient 27.305 (0-20)
--- NOTE | 2019-08-18 09:55 | RAD ---
EXAM: XR Hip Rt 2-3 View PROVIDED CLINICAL HISTORY: Hip fracture COMPARISON: 11/27/2004 FINDINGS: There is an intertrochanteric fracture of the right proximal femur with associated coxa varum. There is a somewhat sclerotic appearance to the fracture margins which may indicate a subacute process. Right hip degenerative changes are seen. Right hip joint space appears maintained. Alignment appears otherwise anatomic. IMPRESSION: Right proximal femoral intertrochanteric fracture as described.
[2019-08-18] MEDS: Heparin 5,000 UNITS/ML VIAL SC SCH ×3 (10:02→21:13)
[2019-08-18] MEDS: Pantoprazole 40 MG VIAL IVP SCH ×2 (10:04→21:14)
[2019-08-18] MEDS: 1/2 NS w/KCL 20 mEq 1,000 ML IV SCH ×2 (12:04→21:15)
--- NOTE | 2019-08-18 14:05 | EKG ---
Test Reason : Blood Pressure : / mmHG Vent. Rate : 130 BPM Atrial Rate : 130 BPM P-R Int : 142 ms QRS Dur : 094 ms QT Int : 322 ms P-R-T Axes : 049 039 -24 degrees QTc Int : 473 ms Sinus tachycardia Inferior infarct , age undetermined Abnormal ECG Confirmed by SANTANA LUCIANO DO ([id number]), acquisitions editor SERGE ULRICH ([id number]) on 08/18/2019 2:05:05 PM Referred By: Confirmed By:SANTANA LUCIANO DO
--- NOTE | 2019-08-18 14:06 | CON ---
DATE OF CONSULTATION: CHIEF COMPLAINT: Right hip pain. HISTORY OF PRESENT ILLNESS: Ms. Lee is an 79-year-old female, who presented to the Emergency Department for ongoing hip pain. She fell approximately 2 weeks ago while trying to turn off a light. The patient is essentially bed bound, but does mobilize around her house some with a wheelchair, a scooter type device. She has had nine back surgeries and essentially because of this, she is no longer able to ambulate. Of note, she had a pain stimulator removed in [place] approximately two months ago. This is still in a healing phase. She has multiple active medical conditions currently. She has been found to have streptococcal bacteremia. She also had a [employer] called this morning after receiving Dilaudid and becoming somnolent. She does not answer questions currently and family is not at the bedside. History is limited to the chart review. PAST MEDICAL HISTORY: Diabetes, hypothyroidism, GERD, constipation, hyperlipidemia, hypercholesterolemia, hypertension, osteoarthritis, chronic back pain, and asthma. PAST SURGICAL HISTORY: Hemorrhoidectomy, breast biopsy, plantar fasciitis, appendectomy, section, hernia surgery, left femur fracture repair and right shoulder arthroplasty, and previous distal radial fracture open reduction and internal fixation bilaterally. Nine spinal surgeries. The patient has had nerve stimulators and removal. PSYCHIATRIC HISTORY: Depression. SOCIAL HISTORY: The patient's chart says she does not use tobacco, alcohol, or drugs. IMAGES: X-rays of the left hip as well as CT scan are reviewed, which demonstrated comminuted intertrochanteric femur fracture. This appears subacute. There is varus angulation. There is some calcification consistent with early healing. LABORATORY STUDIES: Hemoglobin is 11.0 and hematocrit is 33.9. PHYSICAL EXAMINATION: VITAL SIGNS: Temperature is 98.6, pulse is 132, respiratory rate is 18, oxygen saturation 96%, and blood pressure is 138/65. GENERAL: She is lying supine. She is somnolent. She does not answer questions. She does respond to the turning with pain. She is lying on her right side. EXTREMITIES: Her left hip is up and has well-healed surgical scars. The right hip has erythema along the intertriginous folds. She has bruising and a healing scar over her left abdomen. Upper extremities appear atraumatic. NEUROLOGIC: She does not follow commands. IMPRESSION: Elderly female with many medical problems, currently with somnolence and possible strep bacteremia of unknown source. She has a subacute right intertrochanteric femur fracture. PLAN: At this point, the patient is not a surgical candidate. She will need pain control. She is bedbound at baseline and does not ambulate. We will continue to follow her. If she makes significant improvement, we could consider surgical stabilization of her femur for pain relief. However, I do not think she will be a good surgical candidate. She likely will need pain control and nonoperative treatment. She is having ongoing workup for her bacteremia and other medical conditions. We will continue to follow. Job ID: [id number]
[2019-08-18] MEDS: metroNIDAZOLE 500 MG in Premix Bag 1 BAG IVPB SCH ×2 (14:13→21:15)
[2019-08-18] MEDS ORDERED: Lidocaine 1% (PF) 30 ML VIAL SC SCH (14:15)
--- NOTE | 2019-08-18 14:41 | HP ---
REASON FOR ADMISSION: Sepsis, strep bacteremia, right hip fracture, acute kidney injury, failure to thrive with poor functional status. HISTORY OF PRESENTING ILLNESS: The patient gives history of trying to stand up from her scooter to turn off a light above her stove in her apartment when she fell two weeks back. Post this fall, she had gone to emergency room and had a CAT scan and x-ray done for the right hip, which did not reveal any abnormality. Over the course of 2 weeks, the patient's right hip pain got worse to the point that she could not move the right lower extremity at all. She also preferred to lay on the right side. Her moved in to help her mobilize from bed to her scooter. She normally sleeps in a recliner. Prior to any of this, the patient had [facility], who would come three times a week for 3 hours, and the patient would mobilize herself into a wheelchair or scooter from her bed. She has been bedbound for the last 3 years or so now due to multiple back surgeries, nearly 9 of them. Further information was obtained from Mr. Bello Lee, who mentions that she had a retained gauze and scar tissue removed from her prior pain pump removal site over the abdomen. Her pain pump was removed 2 two years back in [place]. The surgery done 3 weeks back to remove partial gauze and scar was done by Dr. Root at [facility] in [place]. mentions that the pain pump that was removed 2 years back was due to infection. He does not recall what variety of infection it was. Her right hip pain was progressively getting worse to the point that the patient could not bear and called EMS. In fact, he had called EMS 2-3 times to help him mobilize her as it was becoming harder for him to move her from the recliner to the scooter. PAST MEDICAL AND SURGICAL HISTORY: History of chronic pain syndrome, multiple back surgeries nearly 8 of them, hypertension, diabetes mellitus type 2, questionable seizure disorder, hypothyroidism, depression, restless legs syndrome, 2 hip surgeries, hysterectomy, cholecystectomy, bilateral tubal ligation, , shoulder replacement surgery, cataract surgery. Medications at home: please note patient and do not recall medications she takes at home and will try to bring her medication bottles at the earliest for review. Allergies: statins and multiple meds as outlined in MAR and I have reviewed. PERSONAL HISTORY: Does not abuse alcohol or drugs. No history of smoking. FAMILY HISTORY: Mother at the age of 92 from natural causes. She does not know much about her father. She is from her , but still . The patient had a total of 5 children, 3 of them are . Older son of leukemia. A 2nd son 2 days after . Her last daughter committed overdose. She has a living son and a daughter. She also has 3 grandkids. CODE STATUS: Full. POWER OF MEAT PUMPER: Her . REVIEW OF SYSTEMS: CONSTITUTIONAL: Negative for weight loss or gain, ability to conduct usual activities. SKIN: Negative for rash, itching. EYES: Negative for double vision, pain. ENT/MOUTH: Negative for nose bleeding, neck stiffness, pain, tenderness. CARDIOVASCULAR: Negative for palpitations, dyspnea on exertion, orthopnea. RESPIRATORY: Negative for shortness of breath, wheezing, cough, hemoptysis, fever or night sweats. GASTROINTESTINAL: Negative for poor appetite, abdominal pain, heartburn, nausea , vomiting, constipation, or diarrhea. GENITOURINARY: Negative for urgency, frequency, dysuria, nocturia. MUSCULOSKELETAL: Negative for pain, swelling. NEUROLOGIC/PSYCHIATRIC: Negative for anxiety, depression. ALLERGY/IMMUNOLOGIC: Negative for skin rash, bleeding tendency. PHYSICAL EXAMINATION: GENERAL: The patient is an 79-year-old female, who is currently in moderate to severe pain in her right hip. VITAL SIGNS: Blood pressure 148/70, pulse 110 per minute, respiratory rate 18 per minute, temperature 98.3 degrees Fahrenheit, saturating 94% on room air. NECK: Supple. No elevated JVD. HEENT: Eyes; extraocular muscles intact. Pupils reacting to light. Oral cavity, mucous membranes are dry. No exudates or congestion. CARDIOVASCULAR SYSTEM: S1, S2 heard. Tachycardic. No murmur. RESPIRATORY SYSTEM: Air entry 1+ bilateral. Scattered rhonchi plus no rales or wheezes. ABDOMEN: Soft. Bowel sounds heard. The patient has a healing scar with swelling in the left upper quadrant area. This was the previous site of her pain pump being removed with recent manipulation done 2 weeks back to remove partial gauze and scar tissue from here. There is no rigidity or guarding. EXTREMITIES: The patient has right lower extremity shortened and externally rotated. She has 1+ peripheral edema, more so in the thighs. She also has extensive tinea cruris in both lower extremities extending to the thighs. The patient has a sacral decubitus, which is stage 2-3 x2. She also has external hemorrhoids, which are visible. LABORATORY DATA: White count of 7, H and H 11 and 33, platelet count 152, MCV is 87 with 61% neutrophils. D-dimer is 5.8. Had a blood gas done this morning, which showed a pH of 7.43, pCO2 41, PO2 of 70, serum bicarb 20, BUN 19, creatinine 1.4 , serum glucose 220. AST and ALT within normal limits. Alkaline phosphatase 157. Albumin is 3.2. Troponin I is peaking up to 0.04. Admitting BUN and creatinine , 22 and 1.6. Lactic acid is 2.3. UA showed signs of UTI. IMAGING DATA: CT of the abdomen and pelvis done showed a comminuted intertrochanteric fracture on the right proximal femur. There was evidence of cystitis, hepatic cirrhosis, splenic varices, thoracolumbar scoliosis, and severe spondylosis. There is small amount of fluid and edema in the right upper quadrant of the peritoneal cavity consistent with an infectious or inflammatory process. The patient also has a 6.5 x 7.5 x 4 cm well-circumscribed fluid collection with thin short in the anterolateral abdominal wall. Chest x-ray done showed no acute cardiopulmonary process. Right hip x-ray done shows right proximal femoral intertrochanteric fracture. CLINICAL IMPRESSION AND PLAN: The patient will be admitted to telemetry for sepsis, strep bacteremia. Her 2 of 2 blood cultures are growing strep. Urine is also growing E coli. She also has right femoral fracture. The patient has been given ceftriaxone and will continue the same. We will add Flagyl for now to cover anaerobic infection, if any in the abdomen. She appears to have a fluid collection in her previous pain pump, which was extracted more than 3 years ago and was manipulated 2 weeks back. In view of strep bacteremia, I have consulted Dr. Clarke for his opinion. I did speak to Dr. Whitmore, radiologist, and there is no intraabdominal abscess or fluid collection for drainage as such. There is abdominal wall fluid collection, which Interventional Radiology will not intervene as this is superficial for General Surgery to check per radiologist. Ms. Lee will be on half-normal saline at 75 mL per hour. [place] p.r.n. for pain. She will also be on Protonix 40 mg twice daily. She will be on a heart-healthy diet. I did speak to Dr. Contreras and he will wait until her current infectious source is identified and her sensitivities are back. Likely, the patient will be ready for surgery for her right hip tomorrow. We will obtain echo with 2D Doppler for LV function. I will also consult Dr. Rey for Infectious Disease. The patient has multiple medical issues with poor functional status and is essentially bedbound for almost 2 to 3 years now. Her overall prognosis is very poor. She wants to be full code for now. Her is her power of district attorney, which I have confirmed from the patient. We will closely monitor her on telemetry. Job ID: [id number] MTDD
--- NOTE | 2019-08-18 15:52 | OP ---
DATE OF PROCEDURE: 08/18/2019 PREOPERATIVE DIAGNOSES: 1. Streptococcus bacteremia in 2/2 blood cultures. 2. Left upper quadrant and anterior abdominal wall fluid collection. POSTOPERATIVE DIAGNOSES: 1. Streptococcus bacteremia in 2/2 blood cultures. 2. Left upper quadrant anterior abdominal wall fluid collection. PROCEDURE PERFORMED: Percutaneous drainage of left upper quadrant abdominal wall fluid collection for microbiology. INDICATIONS FOR PROCEDURE: An 79-year-old woman who is debilitated, bed-bound patient, who was admitted with progressive fatigue, malaise and diagnosed with subacute right intertrochanteric femur fracture, age indeterminate. The patient was also found with a 2/2 blood cultures which are positive for Streptococcus species. Urinalysis also is suggestive of acute E coli urinary tract infection. A CT scan of the abdomen and pelvis, which was obtained, revealed a fluid collection in the left upper quadrant abdominal wall in the area of previous pain pump excision. I discussed options with the patient and her at bedside. I informed them that percutaneous aspiration of the fluid collection will be warranted at this time for diagnostic purposes, and if proven to be the source of the infection, incision and drainage will be undertaken at that time, which would be a more invasive procedure, requiring deep anesthesia. DESCRIPTION OF PROCEDURE: Informed consent was obtained from the patient's . The patient was placed in supine position. The flocculent subcutaneous fluid collection was noted. Overlying skin was sterilely prepped and draped in usual fashion. The skin was anesthetized with 1% lidocaine. I then used a 60 mL syringe with an 18-gauge needle, using this to aspirate approximately 30 mL of dark old blood, which was sent off for microbiology. The patient tolerated the procedure without any apparent complications. The drain exit site is covered with Band-Aid. Job ID: [id number]
[2019-08-18] MEDS: Carvedilol 6.25 MG TAB PO SCH (17:00)
[2019-08-18] MEDS: HYDROcodone/Acetaminophen 5/325 mg Tablet PO PRN (17:44)
[2019-08-18] MEDS ORDERED: Dextrose 50% Abboject 50 ML SYRINGE IVP PRN (18:23)
[2019-08-18] MEDS ORDERED: Dextrose 5% in Water 1,000 ML IV PRN (18:23)
[2019-08-18] MEDS: Mometasone 100 MCG/Formoterol 5 MCG 120 PUFF INHALER INH SCH (19:25)
[2019-08-18] MEDS ORDERED: Fesoterodine Fumarate [Toviaz] 4 MG PO SCH (21:00)
[2019-08-18] MEDS: rOPINIRole HCl 1 MG TAB PO SCH (21:13)
[2019-08-18] MEDS: Gabapentin 100 MG CAP PO SCH (21:13)
[2019-08-18] MEDS: Lidocaine Patch Removal 1 EACH TOP SCH (21:14)
[2019-08-18] MEDS: cefTRIAXone\\ROCEPHIN 1 GM in Sodium Chloride 0.9% 100 ML IVPB SCH (22:39)
[2019-08-18] MEDS ORDERED: cefTRIAXone\\ROCEPHIN 1 GM in Sodium Chloride 0.9% 100 ML IVPB SCH (22:45)
[2019-08-18] MEDS: Trospium 20 MG TAB PO SCH (23:07)
[2019-08-19] MEDS: Levothyroxine Sodium 125 MCG TAB PO SCH (06:10)
[2019-08-19] MEDS: metroNIDAZOLE 500 MG in Premix Bag 1 BAG IVPB SCH (06:10)
[2019-08-19] MEDS: Mometasone 100 MCG/Formoterol 5 MCG 120 PUFF INHALER INH SCH ×2 (07:14→18:30)
[2019-08-19] MEDS ORDERED: D5 1/2 NS w/20 mEq KCL 1,000 ML ONE (07:26)
[2019-08-19] MEDS: HYDROcodone/Acetaminophen 5/325 mg Tablet PO PRN ×3 (07:51→20:43)
[2019-08-19] MEDS: DULoxetine 30 MG CAP PO SCH (07:55)
[2019-08-19] MEDS: 1/2 NS w/KCL 20 mEq 1,000 ML IV SCH ×2 (07:55→16:14)
[2019-08-19] MEDS: Heparin 5,000 UNITS/ML VIAL SC SCH ×3 (07:55→20:44)
[2019-08-19] MEDS: Multivitamin W/ Minerals 1 TAB PO SCH (07:55)
[2019-08-19] MEDS: Pantoprazole 40 MG VIAL IVP SCH ×2 (07:56→20:50)
[2019-08-19] MEDS: Polyethylene Glycol 3350 17 GM Packet PO SCH (07:56)
[2019-08-19] MEDS: Carvedilol 6.25 MG TAB PO SCH ×2 (07:56→16:14)
[2019-08-19] MEDS: Lidocaine 5% Patch TD SCH (09:13)
--- NOTE | 2019-08-19 10:12 | ULT ---
EXAM: Bilateral lower extremity venous Doppler US HISTORY: bilateral lower extremity edema and pain FINDINGS: Grayscale, color-flow, Doppler evaluation, spectral analysis of the bilateral lower extremities venou s structures is performed with 2-D imaging. The bilateral common femoral, superficial femoral, popliteal, posterior tibial, proximal greater saphenous and profunda femoral veins are imaged. There is normal luminal compressibility, flow, and augmentation in the visualized deep venous structu res of the bilateral lower extremities. IMPRESSION: No evidence of a deep vein thrombosis in either lower extremity.
[2019-08-19] MEDS: HumaLOG 300 UNITS/3 ML VIAL SC PRN ×2 (11:40→17:48)
--- NOTE | 2019-08-19 12:27 | PDOC.HOSPP ---
- Subjective Encounter Date: 08/19/19 Encounter Time: 09:00 Subjective: awake, feels better, says she ate her breakfast fully at bedside has pain in right LE - Objective Vital Signs & Weight: Vital Signs (12 hours) Temp Pulse Resp BP Pulse Ox 08/19/19 11:39 98.3 F 100 17 112/59 L 94 L 08/19/19 07:47 99.6 F 113 H 17 133/68 95 08/19/19 07:14 104 H 16 08/19/19 03:46 98.8 F 112 H 18 107/56 L 94 L Weight Weight 179 lb 5 oz I&O: 08/18/19 08/19/19 08/20/19 05:59 06:59 06:59 Intake Total Output Total Balance Result Diagrams: 08/18/19 05:37 08/18/19 05:37 Additional Labs: Accuchecks 08/19/19 08/19/19 08/18/19 11:20 05:30 20:31 POC Glucose 379 H 238 H 226 H 08/18/19 08/18/19 16:17 10:52 POC Glucose 168 H 204 H Hospitalist ROS - Medication Medications: Active Medications Generic Name Dose Route Start Last Admin Trade Name Freq PRN Reason Stop Dose Admin Hydrocodone Bitart/Acetaminophen 1 tab 08/17/19 20:05 08/19/19 11:56 [place] 5/325 PO 1 tab Q4H PRN Administration Moderate Pain (4-6) Carvedilol 12.5 mg 08/18/19 17:00 08/19/19 07:56 Coreg PO 12.5 mg BID-WM SHANTEL Administration Duloxetine HCl 30 mg 08/19/19 09:00 08/19/19 07:55 Cymbalta PO 30 mg DAILY SHANTEL Administration Gabapentin 100 mg 08/18/19 21:00 08/18/19 21:13 Neurontin PO 100 mg HS SHANTEL Administration Heparin Sodium (Porcine) 5,000 units 08/17/19 21:00 08/19/19 07:55 Heparin SC 5,000 units TID SHANTEL Administration Potassium Chloride/Sodium Chloride 1,000 mls @ 100 mls/hr 08/17/19 20:15 01/30 07:55 1/2 Ns W/Kcl 20 Meq IV 1,000 mls .Q10H SHANTEL Administration Insulin Human Lispro 0 units 08/18/19 18:23 08/19/19 11:40 Humalog SC 6 unit .MILD SLIDING SCALE PRN Administration MILD SLIDING SCALE Protocol Iron/Minerals/Multivitamins 1 tab 08/19/19 09:00 08/19/19 07:55 Theragran M PO 1 tab DAILY SHANTEL Administration Levothyroxine Sodium 125 mcg 08/19/19 06:00 08/19/19 06:10 Synthroid PO 125 mcg 0600 SHANTEL Administration Lidocaine 3 patch 08/19/19 09:00 08/19/19 09:13 Lidoderm 5% Patch TD 3 patch DAILY SHANTEL Administration Miscellaneous Medication 3 each 08/18/19 21:00 08/18/19 21:14 Lidocaine Patch Removal TOP Not Given HS SHANTEL Mometasone Furoate/Formoterol Fumar 2 puff 08/18/19 18:30 08/19/19 07:14 Dulera 100 Mcg/5 Mcg Inhaler INH 2 puff BID-RT SHANTEL Administration Pantoprazole Sodium 40 mg 08/18/19 09:00 08/19/19 07:56 Protonix IVP 40 mg Q12HR SHANTEL Administration Polyethylene Glycol 34 gm 08/19/19 09:00 08/19/19 07:56 Miralax PO 34 gm DAILY SHANTEL Administration Ropinirole HCl 4 mg 08/18/19 21:00 08/18/19 21:13 Requip PO 4 mg HS SHANTEL Administration Trospium 20 mg 08/18/19 21:00 08/18/19 23:07 Trospium PO Not Given HS SHANTEL - Exam General Appearance: awake alert Eye: PERRL, anicteric sclera ENT: no oropharyngeal lesions, moist mucosa Neck: supple, no JVD Heart: RRR, no murmur Respiratory: no wheezes, no rales Gastrointestinal: soft, non-tender, non-distended, normal bowel sounds Gastrointestinal - other findings: abd wound in dressing Extremities: no cyanosis, 1+ LE edema Extremities - other findings: right LE is externally rotated flexed at knee and shortened Neurological: cranial nerve grossly intact, no focal deficits Psychiatric: normal affect, A&O x 3 Hosp A/P (1) Sepsis Code(s): A41.9 - SEPSIS, UNSPECIFIED ORGANISM Status: Acute Qualifiers: Sepsis type: Streptococcus, unspecified Sepsis acute organ dysfunction status: with acute organ dysfunction Severe sepsis shock status: without septic shock (2) Bacteremia due to Streptococcus Code(s): R78.81 - BACTEREMIA; B95.5 - UNSP STREPTOCOCCUS THE CAUSE OF DISEASES CLASSD ELSWHR Status: Acute (3) UTI (urinary tract infection) Status: Acute Qualifiers: Urinary tract infection type: acute cystitis Hematuria presence: without hematuria Qualified Code(s): N30.00 - Acute cystitis without hematuria (4) Right femoral fracture Code(s): S72.91XA - UNSP FRACTURE OF RIGHT FEMUR, INIT FOR CLOS FX Status: Acute Qualifiers: Encounter type: subsequent encounter Femur location: neck, unspecified portion Fracture type: closed (5) Hypothyroidism Code(s): E03.9 - HYPOTHYROIDISM, UNSPECIFIED Status: Chronic Qualifiers: Hypothyroidism type: unspecified Qualified Code(s): E03.9 - Hypothyroidism , unspecified (6) Moderate aortic stenosis Code(s): I35.0 - NONRHEUMATIC AORTIC (VALVE) STENOSIS Status: Chronic (7) FTT (failure to thrive) in adult Status: Chronic (8) Moderate protein malnutrition Code(s): E44.0 - MODERATE PROTEIN-CALORIE MALNUTRITION Status: Chronic (9) RACHAEL (acute kidney injury) Code(s): N17.9 - ACUTE KIDNEY FAILURE, UNSPECIFIED Status: Acute (10) Seizure Status: Chronic (11) Chronic back pain Code(s): M54.9 - DORSALGIA, UNSPECIFIED; G89.29 - OTHER CHRONIC PAIN Status: Chronic Qualifiers: Back pain location: low back pain (12) DM2 (diabetes mellitus, type 2) Status: Chronic Qualifiers: Diabetes mellitus long term care phlebotomist insulin use: with long term care phlebotomist use (13) HTN (hypertension) Code(s): I10 - ESSENTIAL (PRIMARY) HYPERTENSION Status: Chronic Qualifiers: Hypertension type: essential hypertension Qualified Code(s): I10 - Essential (primary) hypertension - Plan urine cs grew e.coli resistant to multiple antibiotics blood cs 2/2 are growing strep species, await full sensitivities echo is pending unclear source for strep, likely her skin in lower extremities?, ID consultation is on meropenem, iv hydration once pt is more hemodynamically stable and source of her strep inf is identified she can go to OR for femur fracture ?tuesday she is clinically looking better this am continue coreg, norco, lidocaine tts, synthroid, dulera nebs home dose of multiple psychotropic meds including cymbalta, neurontin, requip, effexor will add lantus as she started to eat well from this am. overall prognosis is guarded given chronic deconditioning she will need femur surgery to alleviate pain which is excruciating and has made her immobile even on bed. she will need surgery with moderate to high risk for complications and I have d/ w patient and about the same in order to relieve pain.
[2019-08-19] MEDS ORDERED: Insulin Glargine 15 UNITS in Pre-Filled Syringe 1 EACH SC SCH (12:35)
[2019-08-19 13:28] LABS: #Eosinphils 0.3 thou/uL (0.0-0.7); #Lymphocytes 1.4 thou/uL (1.20-3.40); #Monocytes 0.6 thou/uL (0.11-0.59); #Neutrophils 3.1 thou/uL (1.40-6.50); %Basophils 0.9 % (0.0-1.0); %Eosinophils 6.3 % (0.0-10.0); %Lymphocytes 25.5 % (21.0-51.0); %Monocytes 10.3 % (0.0-10.0); Hemoglobin 9.5 g/dL (12.0-16.0); Mean Corpuscular HGB CONC 31.8 g/dL (32.0-36.0); Mean Corpuscular Hemoglobin 28.2 pg (27.0-31.0); Mean Corpuscular Volume 88.7 fL (78.0-98.0); Mean Platelet Volume 7.1 fL (7.4-10.4); Platelet Count 179 thou/uL (130-400); RBC Distribution Width 16.2 % (11.5-14.5); Red Blood Cell (RBC) Count 3.37 mill/uL (4.20-5.40); White Blood Cell (WBC) Count 5.4 thou/uL (4.8-10.8)
[2019-08-19 13:57] LABS: ALT (SGPT) 10 U/L (8-55); AST (SGOT) 26 U/L (5-34); Albumin 2.9 g/dL (3.4-4.8); Alkaline Phosphatase 127 U/L (40-110); BUN (Urea Nitrogen) 21 mg/dL (9.8-20.1); Bilirubin, Total 0.5 mg/dL (0.2-1.2); Calc. Creatinine Clearance 49 mL/min (70-130); Calcium 8.9 mg/dL (7.8-10.44); Carbon Dioxide 22 mmol/L (23-31); Estimated GFR-MDRD 45; Glucose 359 mg/dL (83-110); Protein, Total 6.9 g/dL (6.0-8.3)
[2019-08-19] MEDS ORDERED: MEROPENEM 1 GM/50 ML 1 GM in Premix Bag 1 BAG IVPB SCH (14:00)
[2019-08-19 14:06] LABS: Anion Gap 13 mmol/L (10-20); Chloride 103 mmol/L (98-107); Potassium 3.7 mmol/L (3.5-5.1); Sodium 133 mmol/L (136-145)
[2019-08-19] MEDS: cefTRIAXone\\ROCEPHIN 2 GM in Sodium Chloride 0.9% 100 ML IVPB SCH (16:13)
--- NOTE | 2019-08-19 16:54 | CON ---
DATE OF CONSULTATION: 08/19/2019 REASON FOR CONSULTATION: Bacteremia. HISTORY OF PRESENT ILLNESS: An 79-year-old with history of type 2 diabetes, osteoarthritis, mobility impairment, and multiple back surgeries with chronic pain, who fell down while she was trying to turn off a light above her stove in her apartment about 2 weeks before admission. Initially, she had a CAT scan, which did not show any abnormalities in the right hip. The pain got worse, and then her mobility became even more problematic. Apparently, the patient had a pain pump in the abdominal area. The pain pump was removed 2 years before. She was eventually transferred to [facility] for management of the right hip fracture. She never had fever or chills in the home setting before admission. On arrival, her temperature was 98.7 and she remained afebrile, O2 saturations were 96%, pulse was 130, and blood pressure 130/70. She did not appear in distress. Lungs and heart examination appeared normal except for tachycardia. The abdomen was described as not tender. She had redness in the leg on the right side and areas of pressure ulceration with unstageable tissue damage in the presacral and gluteal regions, right and left side. Other findings on admission included white cell count 5.9, hemoglobin 10.7, platelets 217 with normal differential. Sodium 139, creatinine 1.41 with a baseline of 0.87. Liver profile was normal. Alkaline phosphatase 157, albumin 3.2. Urinalysis greater than 50 wbc's. On August 17, Dr. Clarke did a procedure in the subcutaneous fluid collection, 60 mL syringe was used to aspirate about 30 mL of dark old blood in the site of the previous pain pump. Currently, Ms. Lee is awake. She is pleasant. Her speech is normal. She is oriented. She refers to quite severe pain in the right hip region, but not in the abdomen. No headaches. No sore throat, odynophagia, or dysphagia. No dyspnea or chest pain. Voiding with an indwelling Boyce catheter. It is intermittently constipated. Marked mobility impairment in lower extremities, which is a chronic finding. No other neurological problems. PAST MEDICAL HISTORY: Type 2 diabetes, multiple back surgeries with chronic pain syndrome, pain pump which had to be removed a couple of years ago, restless legs syndrome, mobility impairment, wheelchair bound in the home setting. PAST SURGICAL HISTORY: Includes cholecystectomy, hysterectomy, left hip replacement and revision, tubal ligation, , and shoulder replacement. SOCIAL HISTORY: Never smoker. She was living in [place] at long-term facility with her . FAMILY HISTORY: Noncontributory. ALLERGIES: AMITRIPTYLINE, NORVASC, CANAGLIFLOZIN, CODEINE, SULFA DRUGS, AND MORPHINE. PHYSICAL EXAMINATION: VITAL SIGNS: T-max 99.5, blood pressure 112/59, pulse 100, respirations 17, and O2 sats 94%. SKIN: With areas of unstageable pressure damage in the gluteal region bilaterally and midline sacral region. There is erythema and intertriginous maceration in the perineal area and thighs. The ulcers in the back appear to be stage II, maximum 3. The patient has two peripheral IV accesses in Boyce catheter. HEENT: Ocular movements conjugate. Sclerae white. Pupils are equal. Oral cavity with no abnormalities noted. NECK: No jugular vein distention. LUNGS: Symmetric clear breath sounds. BACK: Moderate back tenderness in the lower lumbosacral area. HEART: S1 and S2. Regular rate. No S3 or S4. ABDOMEN: Somewhat distended, but not tender, maybe mild tenderness in the right flank area. No suprapubic distention. No ascites noted. EXTREMITIES: Marked joint mobility impairment in knees and ankles. Still able to move her toes, but cannot lift the knees from the bed. Mobilization of the right lower extremity is very limited because of the pain listed from movement of the right hip as expected. Pulses are 1+ in dorsalis pedis without edema. Stasis dermatitis is noted. NEUROLOGIC: She is awake and oriented, follows commands. Recollection is perfectly fine. Speech is normal. LABORATORY DATA: We have already discussed followup WBC count 5.4, hemoglobin 9.3, platelets 179. Microbiology with strep species in 2 sets of blood cultures yet to be identified, susceptibility tested. The first sample was obtained at 5:37 p.m., the second sample is logged as obtained at 4:42 p.m. a urine culture with E coli with broad resistance profile suggestive of ESBL phenotype. IMAGING: Abdomen and pelvis CT with comminuted intertrochanteric fracture, right proximal femur, cystitis, liver cirrhosis, splenic varices, small amount of fluid and edema in right upper quadrant of peritoneal cavity consistent with an inflammatory process. The possibility of gastroduodenal junction problem, but that is just a hypothesis not a diagnostic finding. ASSESSMENT: 1. Diabetes, type 2. 2. Mobility impairment associated with chronic back problems, chronic pain syndrome. 3. Fall with intertrochanteric fracture in right hip with severe pain. 4. Serendipitous findings in the CT of abdomen with small amount of fluid and edema in right upper quadrant of the peritoneal cavity of uncertain etiology. 5. Streptococcal bacteremia with the samples for the blood cultures seemingly obtained in an appropriate fashion, pending identification of the organism. 6. Stage II pressure ulcerations in the gluteal region bilaterally. 7. Liver cirrhosis probably due to a steatohepatitis. DISCUSSION: The patient's index diagnosis led to admission was the intertrochanteric fracture, but now we have other serendipitous findings that complicate management. Interestingly enough, she does not have a neutrophil count elevation or left shift and a concern for contamination of the sample still present despite seemingly proper collection technique. Dr. Clarke has aspirated what appears to be an area of hematoma following the fall associated with previous location, where the pain pump had been present. This could be still the source of the bacteremia, but we will wait for the culture results from the fluid sample. The preliminary findings did not yield any organism identified on Gram stain. It does not appear that the urinary tract is the source of the bacteremia; although, it is conceivable that the E coli might have overgrown the organism present in blood cultures. She does have pyuria as well, so that hypothesis is not completely excluded. The other possibilities would be translocation associated with the liver cirrhosis and portal hypertension. Endocarditis appears to be less likely, although she has a quite pronounced murmur and the heart examination is definitely abnormal, and we will go ahead and order a 2D echocardiogram. She may need a DELL depending on the identification of the pathogen and blood cultures. Job ID: [id number]
[2019-08-19] MEDS: rOPINIRole HCl 1 MG TAB PO SCH (20:43)
[2019-08-19] MEDS: Venlafaxine HCl XR 150 MG CAP PO SCH (20:43)
[2019-08-19] MEDS: Gabapentin 100 MG CAP PO SCH (20:43)
[2019-08-19] MEDS: Trospium 20 MG TAB PO SCH (20:43)
[2019-08-19] MEDS: Lidocaine Patch Removal 1 EACH TOP SCH (20:44)
[2019-08-19] MEDS: Insulin Glargine 15 UNITS in Pre-Filled Syringe 1 EACH SC SCH (20:48)
[2019-08-19] MEDS ORDERED: cefTRIAXone\\ROCEPHIN 1 GM in Sodium Chloride 0.9% 100 ML IVPB SCH (21:00)
[2019-08-20] MEDS ORDERED: D5 1/2 NS w/20 mEq KCL 1,000 ML ONE (04:03)
[2019-08-20] MEDS: 1/2 NS w/KCL 20 mEq 1,000 ML IV SCH ×2 (04:15→15:50)
[2019-08-20 04:35] LABS: #Eosinphils 0.6 thou/uL (0.0-0.7); #Lymphocytes 1.4 thou/uL (1.20-3.40); #Monocytes 0.5 thou/uL (0.11-0.59); #Neutrophils 2.6 thou/uL (1.40-6.50); %Basophils 0.9 % (0.0-1.0); %Lymphocytes 26.6 % (21.0-51.0); %Neutrophils 50.6 % (42.0-75.0); Hemoglobin 9.1 g/dL (12.0-16.0); Mean Corpuscular HGB CONC 33.1 g/dL (32.0-36.0); Mean Corpuscular Volume 87.7 fL (78.0-98.0); Mean Platelet Volume 6.9 fL (7.4-10.4); Platelet Count 172 thou/uL (130-400); RBC Distribution Width 16.2 % (11.5-14.5); Red Blood Cell (RBC) Count 3.13 mill/uL (4.20-5.40); White Blood Cell (WBC) Count 5.1 thou/uL (4.8-10.8)
[2019-08-20 04:51] LABS: ALT (SGPT) 10 U/L (8-55); AST (SGOT) 24 U/L (5-34); Albumin 2.8 g/dL (3.4-4.8); Alkaline Phosphatase 116 U/L (40-110); Anion Gap 9 mmol/L (10-20); BUN (Urea Nitrogen) 16 mg/dL (9.8-20.1); Bilirubin, Total 0.7 mg/dL (0.2-1.2); Calc. Creatinine Clearance 59 mL/min (70-130); Calcium 8.9 mg/dL (7.8-10.44); Carbon Dioxide 25 mmol/L (23-31); Chloride 104 mmol/L (98-107); Estimated GFR-MDRD 56; Globulin 3.9 g/dL (2.4-3.5); Glucose 142 mg/dL (83-110); Protein, Total 6.7 g/dL (6.0-8.3); Sodium 134 mmol/L (136-145)
[2019-08-20] MEDS: Levothyroxine Sodium 125 MCG TAB PO SCH (05:49)
[2019-08-20] MEDS: Mometasone 100 MCG/Formoterol 5 MCG 120 PUFF INHALER INH SCH ×2 (07:21→19:46)
[2019-08-20] MEDS: HYDROcodone/Acetaminophen 5/325 mg Tablet PO PRN ×3 (07:46→20:59)
[2019-08-20] MEDS: Pantoprazole 40 MG VIAL IVP SCH ×2 (08:37→21:00)
[2019-08-20] MEDS: Insulin Glargine 15 UNITS in Pre-Filled Syringe 1 EACH SC SCH ×2 (08:37→21:00)
[2019-08-20] MEDS: Heparin 5,000 UNITS/ML VIAL SC SCH ×3 (08:37→21:00)
[2019-08-20] MEDS: Carvedilol 6.25 MG TAB PO SCH ×2 (08:38→16:04)
[2019-08-20] MEDS: DULoxetine 30 MG CAP PO SCH (08:39)
[2019-08-20] MEDS: Multivitamin W/ Minerals 1 TAB PO SCH (08:39)
[2019-08-20] MEDS: Polyethylene Glycol 3350 17 GM Packet PO SCH (08:41)
[2019-08-20] MEDS: Lidocaine 5% Patch TD SCH (09:57)
[2019-08-20] MEDS: HumaLOG 300 UNITS/3 ML VIAL SC PRN ×2 (11:36→18:27)
[2019-08-20] MEDS: cefTRIAXone\\ROCEPHIN 2 GM in Sodium Chloride 0.9% 100 ML IVPB SCH (15:48)
--- NOTE | 2019-08-20 18:24 | PRG ---
DATE OF SERVICE: 08/20/2019 SUBJECTIVE: Ms. Lee is again lot laying her right lateral decubitus in an antalgic position because of her right hip as well as the lower back. No respiratory symptoms. She has abdominal tenderness in the left flank area, where the previous pain pump had been placed and the aspiration was carried out by Dr. Clarke. She has severe mobility impairment. OBJECTIVE: VITAL SIGNS: T-max of 98.4, blood pressure 130/60, pulse 83, respirations 20, O2 saturation 98%. SKIN: Shows the area where the previous pain pump was located in the left flank area with a little bit of hyperpigmentation/bruising. Mild tenderness. No drainage. She has the decubitus areas of ulceration as noted before. LUNGS: Clear. HEART: S1 and S2. Regular rate. ABDOMEN: Soft, moderately protuberant. LABORATORY DATA: White cell count 5.1, hemoglobin 9.1, platelets 172. Sodium 134, creatinine 0.96. Microbiology with nonhemolytic Streptococcus, not Enterococcus. This was obtained from the left arm. Echocardiogram with poor images. The patient is unable to turn to the left side due to hip fracture. The images were too poor to visualize the valves. ASSESSMENT: Type 2 diabetes; mobility impairment associated with chronic back problems; fall with intertrochanteric fracture in the right hip with severe pain and small amount of fluid and hematoma in the previously located site for the pain pump, which has been removed; streptococcal bacteremia with unclear meaning. DISCUSSION: The streptococcus isolated is not her typical pathogen for this sort of problem. The echocardiogram was of poor quality. It is possible that the area in the previous pain pump location was infected. The abdominal drainage culture, however, showed no organisms seen and no growth at 48 hours. It is possible that this was a sterile hematoma. The other possibility is that she had penetration of the blood stream via the skin from the sacral areas associated with her liver cirrhosis, which allowed more readily penetration of bacteria in her blood stream and persistence. At this point, I would recommend transition to oral antimicrobial therapy with penicillin or amoxicillin and follow clinical course. In terms of the repair of the right hip, there is still a decision to be made between Dr. Contreras and the patient regarding the management. Job ID: [id number]
--- NOTE | 2019-08-20 20:18 | PDOC.HOSPP ---
- Subjective Encounter Date: 08/20/19 Subjective: The patient was seen and examined. She is laying in bed and complaining of right-sided hip area pain. No signs of confusion today. - Objective Vital Signs & Weight: Vital Signs (12 hours) Temp Pulse Resp BP BP Pulse Ox 08/20/19 19:46 98.2 F 78 16 112/56 L 96 08/20/19 16:04 139/62 08/20/19 16:00 98.6 F 83 20 139/62 98 08/20/19 11:57 97.8 F 81 20 127/60 98 08/20/19 08:38 150/83 H Weight Weight 179 lb 5 oz I&O: 08/19/19 08/20/19 08/21/19 06:59 06:59 06:59 Intake Total 3812 1815 Output Total 1150 1200 Balance 2662 615 Result Diagrams: 08/20/19 04:14 08/20/19 04:14 Additional Labs: Accuchecks 08/20/19 08/20/19 08/20/19 16:18 10:45 05:43 POC Glucose 273 H 309 H 179 H 08/19/19 20:51 POC Glucose 219 H Hospitalist ROS - Medication Medications: Active Medications Generic Name Dose Route Start Last Admin Trade Name Freq PRN Reason Stop Dose Admin Hydrocodone Bitart/Acetaminophen 1 tab 08/17/19 20:05 08/20/19 14:14 [place] 5/325 PO 1 tab Q4H PRN Administration Moderate Pain (4-6) Carvedilol 12.5 mg 08/18/19 17:00 08/20/19 16:04 Coreg PO 12.5 mg BID-WM SHANTEL Administration Cholecalciferol 2,000 units 08/19/19 21:00 08/19/19 20:43 Vitamin D3 PO 2,000 units HS SHANTEL Administration Duloxetine HCl 30 mg 08/19/19 09:00 08/20/19 08:39 Cymbalta PO 30 mg DAILY SHANTEL Administration Gabapentin 100 mg 08/18/19 21:00 08/19/19 20:43 Neurontin PO 100 mg HS SHANTEL Administration Heparin Sodium (Porcine) 5,000 units 08/17/19 21:00 08/20/19 15:50 Heparin SC 5,000 units TID SHANTEL Administration Potassium Chloride/Sodium Chloride 1,000 mls @ 100 mls/hr 08/17/19 20:15 03/02 15:50 1/2 Ns W/Kcl 20 Meq IV 1,000 mls .Q10H SHANTEL Administration Insulin Glargine 15 units/ 0.15 mls @ 0 mls/hr 08/19/19 21:00 08/20/19 08:37 Miscellaneous Medication SC 0.15 mls BID SHANTEL Administration Ceftriaxone Sodium 2 gm/ 100 mls @ 200 mls/hr 08/19/19 16:00 08/20/19 15:48 Sodium Chloride IVPB 100 mls 1600 SHANTEL Administration Insulin Human Lispro 0 units 08/18/19 18:23 08/20/19 18:27 Humalog SC 4 unit .MILD SLIDING SCALE PRN Administration MILD SLIDING SCALE Protocol Iron/Minerals/Multivitamins 1 tab 08/19/19 09:00 08/20/19 08:39 Theragran M PO 1 tab DAILY SHANTEL Administration Levothyroxine Sodium 125 mcg 08/19/19 06:00 08/20/19 05:49 Synthroid PO 125 mcg 0600 SHANTEL Administration Lidocaine 3 patch 08/19/19 09:00 08/20/19 09:57 Lidoderm 5% Patch TD 3 patch DAILY SHANTEL Administration Miscellaneous Medication 3 each 08/18/19 21:00 08/19/19 20:44 Lidocaine Patch Removal TOP Not Given HS SHANTEL Mometasone Furoate/Formoterol Fumar 2 puff 08/18/19 18:30 08/20/19 19:46 Dulera 100 Mcg/5 Mcg Inhaler INH 2 puff BID-RT SHANTEL Administration Pantoprazole Sodium 40 mg 08/18/19 09:00 08/20/19 08:37 Protonix IVP 40 mg Q12HR SHANTEL Administration Polyethylene Glycol 34 gm 08/19/19 09:00 08/20/19 08:41 Miralax PO 34 gm DAILY SHANTEL Administration Ropinirole HCl 4 mg 08/18/19 21:00 08/19/19 20:43 Requip PO 4 mg HS SHANTEL Administration Trospium 20 mg 08/18/19 21:00 08/19/19 20:43 Trospium PO 20 mg HS SHANTEL Administration Venlafaxine HCl 150 mg 08/19/19 21:00 08/19/19 20:43 Effexor Xr PO 150 mg HS SHANTEL Administration - Exam General Appearance: NAD ENT: normocephalic atraumatic Neck: supple, no JVD Heart: RRR, no murmur, no gallops, no rubs, normal peripheral pulses Respiratory: CTAB, no wheezes, no rales, no ronchi, normal chest expansion Gastrointestinal: soft, non-tender, non-distended, normal bowel sounds Hosp A/P (1) Bacteremia due to Streptococcus Code(s): R78.81 - BACTEREMIA; B95.5 - UNSP STREPTOCOCCUS THE CAUSE OF DISEASES CLASSD ELSWHR Status: Acute (2) Right femoral fracture Code(s): S72.91XA - UNSP FRACTURE OF RIGHT FEMUR, INIT FOR CLOS FX Status: Acute Qualifiers: Encounter type: subsequent encounter Femur location: neck, unspecified portion Fracture type: closed (3) UTI (urinary tract infection) Status: Acute Qualifiers: Urinary tract infection type: acute cystitis Hematuria presence: without hematuria Qualified Code(s): N30.00 - Acute cystitis without hematuria (4) FTT (failure to thrive) in adult Status: Chronic - Plan The patient is not a candidate for surgical intervention per orthopedic surgery due to her multiple comorbidities. No signs of sepsis today. E. coli growing in the urine and none hemolytic streptococci growing in the blood. Abdominal wall hematoma was drained which showing no significant growth. Patient currently is on IV ceftriaxone. ID is assisting us on managing the antibiotics.
[2019-08-20] MEDS: Gabapentin 100 MG CAP PO SCH (20:59)
[2019-08-20] MEDS: rOPINIRole HCl 1 MG TAB PO SCH (20:59)
[2019-08-20] MEDS: Trospium 20 MG TAB PO SCH (20:59)
[2019-08-20] MEDS: Venlafaxine HCl XR 150 MG CAP PO SCH (20:59)
[2019-08-20] MEDS: Lidocaine Patch Removal 1 EACH TOP SCH (21:00)
[2019-08-21] MEDS ORDERED: diphenhydrAMINE 25 MG CAP PO PRN (00:27)
[2019-08-21] MEDS ORDERED: D5 1/2 NS w/20 mEq KCL 1,000 ML ONE ×2 (03:34→20:52)
[2019-08-21] MEDS: 1/2 NS w/KCL 20 mEq 1,000 ML IV SCH ×3 (04:06→20:54)
[2019-08-21 04:51] LABS: Anion Gap 10 mmol/L (10-20); BUN (Urea Nitrogen) 13 mg/dL (9.8-20.1); Calc. Creatinine Clearance 71 mL/min (70-130); Calcium 8.8 mg/dL (7.8-10.44); Carbon Dioxide 23 mmol/L (23-31); Chloride 102 mmol/L (98-107); Estimated GFR-MDRD 69; Glucose 112 mg/dL (83-110); Potassium 4.5 mmol/L (3.5-5.1); Sodium 130 mmol/L (136-145)
[2019-08-21 04:52] LABS: Eosinophils 10 % (0-10); Hemoglobin 8.8 g/dL (12.0-16.0); Lymphocytes 40 % (21-51); MDiff Complete? YES; Mean Corpuscular HGB CONC 31.7 g/dL (32.0-36.0); Mean Corpuscular Hemoglobin 27.7 pg (27.0-31.0); Mean Corpuscular Volume 87.4 fL (78.0-98.0); Mean Platelet Volume 6.9 fL (7.4-10.4); Monocytes 5 % (0-10); Neutrophil 45 % (42-75); Platelet Count 167 thou/uL (130-400); Platelet Morphology Comment Appears Adequate; RBC Distribution Width 16.4 % (11.5-14.5); Red Blood Cell (RBC) Count 3.16 mill/uL (4.20-5.40); White Blood Cell (WBC) Count 4.3 thou/uL (4.8-10.8)
[2019-08-21] MEDS: Levothyroxine Sodium 125 MCG TAB PO SCH (06:04)
[2019-08-21] MEDS: Mometasone 100 MCG/Formoterol 5 MCG 120 PUFF INHALER INH SCH ×2 (08:37→19:39)
[2019-08-21] MEDS: Carvedilol 6.25 MG TAB PO SCH ×2 (09:09→16:55)
[2019-08-21] MEDS: Multivitamin W/ Minerals 1 TAB PO SCH (09:53)
[2019-08-21] MEDS: Polyethylene Glycol 3350 17 GM Packet PO SCH (09:53)
[2019-08-21] MEDS: Heparin 5,000 UNITS/ML VIAL SC SCH ×3 (09:53→20:55)
[2019-08-21] MEDS: DULoxetine 30 MG CAP PO SCH (09:53)
[2019-08-21] MEDS: Insulin Glargine 15 UNITS in Pre-Filled Syringe 1 EACH SC SCH ×2 (09:54→20:55)
[2019-08-21] MEDS: Pantoprazole 40 MG VIAL IVP SCH ×2 (09:55→20:55)
[2019-08-21] MEDS: Lidocaine 5% Patch TD SCH (09:56)
--- NOTE | 2019-08-21 11:35 | PDOC.HOSPP ---
- Subjective Encounter Date: 08/21/19 Subjective: The patient is setting at the side of the bed without significant distress. No new events overnight. - Objective Vital Signs & Weight: Vital Signs (12 hours) Temp Pulse Resp BP Pulse Ox 08/21/19 08:28 97.6 F 106 H 20 146/73 H 93 L 08/21/19 04:00 98.5 F 88 18 141/67 H 97 08/21/19 00:15 81 139/66 Weight Weight 179 lb 5 oz I&O: 08/20/19 08/21/19 08/22/19 06:59 06:59 06:59 Intake Total 3812 3852 Output Total 1150 2800 Balance 2662 1052 Result Diagrams: 08/21/19 04:15 08/21/19 04:15 Additional Labs: Accuchecks 08/21/19 08/21/19 08/20/19 10:54 05:54 20:33 POC Glucose 271 H 119 H 158 H 08/20/19 16:18 POC Glucose 273 H Hospitalist ROS - Medication Medications: Active Medications Generic Name Dose Route Start Last Admin Trade Name Freq PRN Reason Stop Dose Admin Hydrocodone Bitart/Acetaminophen 1 tab 08/17/19 20:05 08/20/19 20:59 [place] 5/325 PO 1 tab Q4H PRN Administration Moderate Pain (4-6) Carvedilol 12.5 mg 08/18/19 17:00 08/21/19 09:09 Coreg PO 12.5 mg BID-WM SHANTEL Administration Cholecalciferol 2,000 units 08/19/19 21:00 08/20/19 20:58 Vitamin D3 PO 2,000 units HS SHANTEL Administration Duloxetine HCl 30 mg 08/19/19 09:00 08/21/19 09:53 Cymbalta PO 30 mg DAILY SHANTEL Administration Gabapentin 100 mg 08/18/19 21:00 08/20/19 20:59 Neurontin PO 100 mg HS SHANTEL Administration Heparin Sodium (Porcine) 5,000 units 08/17/19 21:00 08/21/19 09:53 Heparin SC 5,000 units TID SHANTEL Administration Potassium Chloride/Sodium Chloride 1,000 mls @ 100 mls/hr 08/17/19 20:15 04/01 04:06 1/2 Ns W/Kcl 20 Meq IV 1,000 mls .Q10H SHANTEL Administration Insulin Glargine 15 units/ 0.15 mls @ 0 mls/hr 08/19/19 21:00 08/21/19 09:54 Miscellaneous Medication SC 0.15 mls BID SHANTEL Administration Ceftriaxone Sodium 2 gm/ 100 mls @ 200 mls/hr 08/19/19 16:00 08/20/19 15:48 Sodium Chloride IVPB 100 mls 1600 SHANTEL Administration Insulin Human Lispro 0 units 08/18/19 18:23 08/20/19 18:27 Humalog SC 4 unit .MILD SLIDING SCALE PRN Administration MILD SLIDING SCALE Protocol Iron/Minerals/Multivitamins 1 tab 08/19/19 09:00 08/21/19 09:53 Theragran M PO 1 tab DAILY SHANTEL Administration Levothyroxine Sodium 125 mcg 08/19/19 06:00 08/21/19 06:04 Synthroid PO 125 mcg 0600 SHANTEL Administration Lidocaine 3 patch 08/19/19 09:00 08/21/19 09:56 Lidoderm 5% Patch TD 3 patch DAILY SHANTEL Administration Miscellaneous Medication 3 each 08/18/19 21:00 08/20/19 21:00 Lidocaine Patch Removal TOP Not Given HS SHANTEL Mometasone Furoate/Formoterol Fumar 2 puff 08/18/19 18:30 08/21/19 08:37 Dulera 100 Mcg/5 Mcg Inhaler INH 2 puff BID-RT SHANTEL Administration Pantoprazole Sodium 40 mg 08/18/19 09:00 08/21/19 09:55 Protonix IVP 40 mg Q12HR SHANTEL Administration Polyethylene Glycol 34 gm 08/19/19 09:00 08/21/19 09:53 Miralax PO 34 gm DAILY SHANTEL Administration Ropinirole HCl 4 mg 08/18/19 21:00 08/20/19 20:59 Requip PO 4 mg HS SHANTEL Administration Trospium 20 mg 08/18/19 21:00 08/20/19 20:59 Trospium PO 20 mg HS SHANTEL Administration Venlafaxine HCl 150 mg 08/19/19 21:00 08/20/19 20:59 Effexor Xr PO 150 mg HS SHANTEL Administration - Exam General Appearance: NAD Neck: supple Heart: RRR, no murmur, no gallops, no rubs, normal peripheral pulses Respiratory: CTAB, no wheezes, no rales, no ronchi, normal chest expansion Gastrointestinal: soft, non-tender, non-distended, normal bowel sounds Hosp A/P (1) Bacteremia due to Streptococcus Code(s): R78.81 - BACTEREMIA; B95.5 - UNSP STREPTOCOCCUS THE CAUSE OF DISEASES CLASSD ELSWHR Status: Acute (2) Right femoral fracture Code(s): S72.91XA - UNSP FRACTURE OF RIGHT FEMUR, INIT FOR CLOS FX Status: Acute Qualifiers: Encounter type: subsequent encounter Femur location: neck, unspecified portion Fracture type: closed (3) UTI (urinary tract infection) Status: Acute Qualifiers: Urinary tract infection type: acute cystitis Hematuria presence: without hematuria Qualified Code(s): N30.00 - Acute cystitis without hematuria (4) FTT (failure to thrive) in adult Status: Chronic - Plan The patient is not a candidate for surgical intervention per orthopedic surgery due to her multiple comorbidities. The patient and her disagreed with this plan and asked to meet the surgeon. I relayed that to Dr. Contreras. No signs of sepsis today. E. coli growing in the urine and none hemolytic streptococci growing in the blood. Abdominal wall hematoma was drained which showing no significant growth. Patient currently is on IV ceftriaxone. ID is assisting us on managing the antibiotics.
[2019-08-21] MEDS: HYDROcodone/Acetaminophen 5/325 mg Tablet PO PRN ×2 (13:11→18:28)
[2019-08-21] MEDS: HumaLOG 300 UNITS/3 ML VIAL SC PRN (15:20)
[2019-08-21] MEDS: cefTRIAXone\\ROCEPHIN 2 GM in Sodium Chloride 0.9% 100 ML IVPB SCH (16:56)
[2019-08-21] MEDS: Venlafaxine HCl XR 150 MG CAP PO SCH (20:54)
[2019-08-21] MEDS: rOPINIRole HCl 1 MG TAB PO SCH (20:54)
[2019-08-21] MEDS: Trospium 20 MG TAB PO SCH (20:55)
[2019-08-21] MEDS: Gabapentin 100 MG CAP PO SCH (20:55)
[2019-08-21] MEDS: Lidocaine Patch Removal 1 EACH TOP SCH (20:56)
--- NOTE | 2019-08-21 22:59 | CON ---
DATE OF CONSULTATION: 08/21/2019 BRIEF HISTORY OF PRESENT ILLNESS: Ms. Lee is an 79-year-old lady whose history of present illness has been well documented both in her history and physical upon admission as well as the initial consultation note from Dr. Sumanth Contreras. I was asked to return and speak with the patient and her regarding management options for her right intertrochanteric femur fracture. Briefly, since the patient's admission, she did grow out 2/2 blood cultures for a non-hemolytic strep. She was currently followed by Dr. Bryan Rey for this. She also was found to have an infected pain pump that had a percutaneous drainage procedure performed by Dr. Woodrow Clarke. The patient does have a comminuted intertrochanteric femur fracture in addition to these other problems. Today, I had a lengthy discussion with the patient and her . We discussed the fact that the patient is a non-ambulator and uses a wheelchair or scooter for mobility. She is having some groin pain on the right side. However, today, she is able lie on her right side, which is her preferred position, secondary to chronic back problems. Of note, 3 days ago, she was unable to lie on this side. Obviously, there has been some decrease in the degree of pain that she is experiencing with this right hip fracture. Today, we had a lengthy and bhavani discussion regarding surgical stabilization of this fracture. Certainly, we can proceed with instrumentation of this fracture. However, given her multiple episodes of sepsis and infections, I feel that it is not a question of if her hip implant gets infected, but rather when. I have discussed with the patient and her that should this hip implant become infected, it would need to be removed and that we would be back at square 1 with the addition of open wounds, now that would further complicate treatment of infection. I have also discussed with them that I expect that this hip fracture will become less painful over time and that I would expect a fibrous union to form that would provide a leg that could be used for stability when seated and that she could eventually become independent with her transfers from bed to chair. Given the very high risk for infection of implants for this hip, given her past history, I have strongly asked the family to reconsider a desire for surgical intervention as I think this might be a very short-term gain for what potentially could be a long-term problem with further infection. After our lengthy discussion and after multiple questions were answered, I believe that we did come to an agreement that proceeding with surgical stabilization is not in the patient's best interest and that instead giving consideration to transfer to a assisted facility where she could continue to receive antibiotics for her ongoing infection and receive physical therapy for education on transfer with this intertrochanteric femur fracture could be pursued. The patient was reluctant to entertain assisted; however, she clearly is going to require more assistance and her is capable of providing at home with respect to transfers and the IV antibiotics. At this time, they do appear comfortable with discussing with case management and her primary care team. The option of pursuing a assisted stay to get further physical therapy and her antibiotic treatment. We will continue to follow the patient peripherally. Job ID: [id number]
[2019-08-22] MEDS: HYDROcodone/Acetaminophen 5/325 mg Tablet PO PRN ×4 (03:55→20:16)
[2019-08-22 04:50] LABS: Eosinophils 3 % (0-10); Hemoglobin 8.8 g/dL (12.0-16.0); Hypochromia SLIGHT = 6-15 cells (100X) (0-5/hpf); Lymphocytes 22 % (21-51); MDiff Complete? YES; Mean Corpuscular HGB CONC 32.1 g/dL (32.0-36.0); Mean Corpuscular Hemoglobin 28.2 pg (27.0-31.0); Mean Corpuscular Volume 87.9 fL (78.0-98.0); Mean Platelet Volume 7.7 fL (7.4-10.4); Monocytes 1 % (0-10); Neutrophil 74 % (42-75); Platelet Count 170 thou/uL (130-400); Platelet Morphology Comment Appears Adequate; RBC Distribution Width 16.6 % (11.5-14.5); Red Blood Cell (RBC) Count 3.11 mill/uL (4.20-5.40); White Blood Cell (WBC) Count 4.1 thou/uL (4.8-10.8)
[2019-08-22 04:53] LABS: Anion Gap 11 mmol/L (10-20); BUN (Urea Nitrogen) 12 mg/dL (9.8-20.1); Calc. Creatinine Clearance 77 mL/min (70-130); Calcium 8.9 mg/dL (7.8-10.44); Carbon Dioxide 21 mmol/L (23-31); Chloride 101 mmol/L (98-107); Estimated GFR-MDRD 75; Glucose 123 mg/dL (83-110); Potassium 4.5 mmol/L (3.5-5.1); Sodium 128 mmol/L (136-145)
[2019-08-22] MEDS ORDERED: D5 1/2 NS w/20 mEq KCL 1,000 ML ONE (05:24)
[2019-08-22] MEDS: Levothyroxine Sodium 125 MCG TAB PO SCH (05:31)
[2019-08-22] MEDS: 1/2 NS w/KCL 20 mEq 1,000 ML IV SCH (05:32)
[2019-08-22] MEDS: Mometasone 100 MCG/Formoterol 5 MCG 120 PUFF INHALER INH SCH ×2 (07:28→19:03)
[2019-08-22] MEDS: Insulin Glargine 15 UNITS in Pre-Filled Syringe 1 EACH SC SCH ×2 (09:18→20:18)
[2019-08-22] MEDS: Pantoprazole 40 MG VIAL IVP SCH ×2 (09:18→20:17)
[2019-08-22] MEDS: Polyethylene Glycol 3350 17 GM Packet PO SCH (09:18)
[2019-08-22] MEDS: Heparin 5,000 UNITS/ML VIAL SC SCH ×3 (09:19→20:17)
[2019-08-22] MEDS: DULoxetine 30 MG CAP PO SCH (09:19)
[2019-08-22] MEDS: Multivitamin W/ Minerals 1 TAB PO SCH (09:20)
[2019-08-22] MEDS: Lidocaine 5% Patch TD SCH (09:20)
[2019-08-22] MEDS: Carvedilol 6.25 MG TAB PO SCH ×2 (09:20→16:10)
[2019-08-22] MEDS: Aspirin 81 mg Enteric Coated Tablet PO SCH (09:20)
[2019-08-22] MEDS: HumaLOG 300 UNITS/3 ML VIAL SC PRN (11:27)
--- NOTE | 2019-08-22 11:56 | PDOC.HOSPP ---
- Subjective Encounter Date: 08/22/19 Subjective: Complaining of bilateral leg discomfort. - Objective Vital Signs & Weight: Vital Signs (12 hours) Temp Pulse Resp BP Pulse Ox 08/22/19 11:11 97.6 F 86 18 145/70 H 95 08/22/19 07:55 99 F 86 20 147/73 H 94 L 08/22/19 07:28 84 16 96 08/22/19 03:52 98.4 F 84 17 157/75 H 96 Weight Weight 179 lb 5 oz I&O: 08/21/19 08/22/19 08/23/19 06:59 06:59 06:59 Intake Total 3852 4878 Output Total 2800 3000 Balance 1052 1878 Result Diagrams: 08/22/19 03:37 08/22/19 03:37 Additional Labs: Accuchecks 08/22/19 08/22/19 08/21/19 11:00 05:40 20:48 POC Glucose 260 H 139 H 201 H 08/21/19 08/21/19 16:57 15:15 POC Glucose 131 H 176 H Hospitalist ROS - Medication Medications: Active Medications Generic Name Dose Route Start Last Admin Trade Name Freq PRN Reason Stop Dose Admin Hydrocodone Bitart/Acetaminophen 1 tab 08/17/19 20:05 08/22/19 09:24 [place] 5/325 PO 1 tab Q4H PRN Administration Moderate Pain (4-6) Aspirin 81 mg 08/22/19 09:00 08/22/19 09:20 Ecotrin PO 81 mg DAILY SHANTEL Administration Carvedilol 12.5 mg 08/18/19 17:00 08/22/19 09:20 Coreg PO 12.5 mg BID-WM SHANTEL Administration Cholecalciferol 2,000 units 08/19/19 21:00 08/21/19 20:54 Vitamin D3 PO 2,000 units HS SHANTEL Administration Duloxetine HCl 30 mg 08/19/19 09:00 08/22/19 09:19 Cymbalta PO 30 mg DAILY SHANTEL Administration Gabapentin 100 mg 08/18/19 21:00 08/21/19 20:55 Neurontin PO 100 mg HS SHANTEL Administration Heparin Sodium (Porcine) 5,000 units 08/17/19 21:00 08/22/19 09:19 Heparin SC 5,000 units TID SHANTEL Administration Insulin Glargine 15 units/ 0.15 mls @ 0 mls/hr 08/19/19 21:00 08/22/19 09:18 Miscellaneous Medication SC 0.15 mls BID SHANTEL Administration Ceftriaxone Sodium 2 gm/ 100 mls @ 200 mls/hr 08/19/19 16:00 08/21/19 16:56 Sodium Chloride IVPB 100 mls 1600 SHANTEL Administration Insulin Human Lispro 0 units 08/18/19 18:23 08/22/19 11:27 Humalog SC 4 unit .MILD SLIDING SCALE PRN Administration MILD SLIDING SCALE Protocol Iron/Minerals/Multivitamins 1 tab 08/19/19 09:00 08/22/19 09:20 Theragran M PO 1 tab DAILY SHANTEL Administration Levothyroxine Sodium 125 mcg 08/19/19 06:00 08/22/19 05:31 Synthroid PO 125 mcg 0600 SHANTEL Administration Lidocaine 3 patch 08/19/19 09:00 08/22/19 09:20 Lidoderm 5% Patch TD 3 patch DAILY SHANTEL Administration Miscellaneous Medication 3 each 08/18/19 21:00 08/21/19 20:56 Lidocaine Patch Removal TOP Not Given HS SHANTEL Mometasone Furoate/Formoterol Fumar 2 puff 08/18/19 18:30 08/22/19 07:28 Dulera 100 Mcg/5 Mcg Inhaler INH 2 puff BID-RT SHANTEL Administration Pantoprazole Sodium 40 mg 08/18/19 09:00 08/22/19 09:18 Protonix IVP 40 mg Q12HR SHANTEL Administration Polyethylene Glycol 34 gm 08/19/19 09:00 08/22/19 09:18 Miralax PO 34 gm DAILY SHANTEL Administration Ropinirole HCl 4 mg 08/18/19 21:00 08/21/19 20:54 Requip PO 4 mg HS SHANTEL Administration Trospium 20 mg 08/18/19 21:00 08/21/19 20:55 Trospium PO 20 mg HS SHANTEL Administration Venlafaxine HCl 150 mg 08/19/19 21:00 08/21/19 20:54 Effexor Xr PO 150 mg HS SHANTEL Administration - Exam General Appearance: NAD ENT: normocephalic atraumatic Neck: supple, no JVD Heart: RRR Respiratory: CTAB Gastrointestinal: soft, non-tender Neurological: cranial nerve grossly intact, no focal deficits Psychiatric: normal affect, A&O x 3 Hosp A/P (1) Bacteremia due to Streptococcus Code(s): R78.81 - BACTEREMIA; B95.5 - UNSP STREPTOCOCCUS THE CAUSE OF DISEASES CLASSD ELSWHR Status: Acute (2) Right femoral fracture Code(s): S72.91XA - UNSP FRACTURE OF RIGHT FEMUR, INIT FOR CLOS FX Status: Acute Qualifiers: Encounter type: subsequent encounter Femur location: neck, unspecified portion Fracture type: closed (3) UTI (urinary tract infection) Status: Acute Qualifiers: Urinary tract infection type: acute cystitis Hematuria presence: without hematuria Qualified Code(s): N30.00 - Acute cystitis without hematuria (4) FTT (failure to thrive) in adult Status: Chronic - Plan The patient is not a candidate for surgical intervention per orthopedic surgery due to her multiple comorbidities. The patient and her disagreed with this plan and asked to meet the surgeon. After the meeting yesterday they are onboard with the non operative management. SNF placement. On aspirin for VTE ppx. NA+ is low at 128. DC fluids and check BMP in the AM. E. coli growing in the urine and none hemolytic streptococci growing in the blood. Abdominal wall hematoma was drained which showing no significant growth. Patient currently is on IV ceftriaxone. ID is assisting us on managing the antibiotics.
[2019-08-22] MEDS: cefTRIAXone\\ROCEPHIN 2 GM in Sodium Chloride 0.9% 100 ML IVPB SCH (16:02)
--- NOTE | 2019-08-22 18:24 | PRG ---
DATE OF SERVICE: 08/22/2019 SUBJECTIVE: Ms. Lee is still lying in her right lateral decubitus. Apparently, earlier today, they changed her over to the left lateral decubitus and looked at the skin on the right and seemed to be intact. Apparently, she is being transferred to rehab. She denies any respiratory symptoms. The lower back pain continues to be the main issue that she is dealing with. No abdominal pain or diarrhea. OBJECTIVE: VITAL SIGNS: Temperature max was 99, currently 97; BP 150/69; pulse 81; respirations 18. GENERAL: Awake, alert, pleasant. LUNGS: Clear to auscultation and percussion. HEART: S1, S2. Regular rate. ABDOMEN: Soft, not distended. LABORATORY DATA: White cell count 4.1, hemoglobin 8.8, platelets 170. Creatinine 0.74, sodium 128. Microbiology with nonhemolytic Streptococcus in 2 sets of blood cultures. Dr. Tello has recommended that surgical fixation would not be in her best interest. It looks like a half-way unit will be the next step. As noted before, the echocardiogram was of difficult technical quality. WBC count 4.1, hemoglobin 8.8, platelets 170. ASSESSMENT AND DISCUSSION: 1. Type-2 diabetes. 2. Mobility impairment associated with chronic back pain. 3. Fall. 4. Intertrochanteric fracture, right hip. 5. Severe pain. 6. Small amount of fluid hematoma in the previously located site of the pain pump. This has been removed in the past. 7. Streptococcus bacteremia of unclear meaning. Again, as noted before, the Streptococcus isolate is not typically very pathogenic. The echo was of poor quality. The area of the previous pain pump was aspirated, but there was no growth thus far and no organism seen, so I think that there was just a hematoma, but not an infected site. At this point in time, I would recommend transition to oral antimicrobial therapy with either amoxicillin or Keflex for another 10 days. Job ID: [id number]
[2019-08-22] MEDS: Gabapentin 100 MG CAP PO SCH (20:18)
[2019-08-22] MEDS: rOPINIRole HCl 1 MG TAB PO SCH (20:18)
[2019-08-22] MEDS: Trospium 20 MG TAB PO SCH (20:18)
[2019-08-22] MEDS: Venlafaxine HCl XR 150 MG CAP PO SCH (20:18)
[2019-08-22] MEDS: Lidocaine Patch Removal 1 EACH TOP SCH (23:54)
[2019-08-23] MEDS: HYDROcodone/Acetaminophen 5/325 mg Tablet PO PRN ×5 (00:42→23:39)
[2019-08-23 05:17] LABS: Eosinophils 9 % (0-10); Lymphocytes 20 % (21-51); MDiff Complete? YES; Mean Corpuscular HGB CONC 33.2 g/dL (32.0-36.0); Mean Corpuscular Hemoglobin 28.7 pg (27.0-31.0); Mean Corpuscular Volume 86.4 fL (78.0-98.0); Mean Platelet Volume 6.7 fL (7.4-10.4); Monocytes 11 % (0-10); Neutrophil 60 % (42-75); Platelet Count 189 thou/uL (130-400); Platelet Morphology Comment Appears Adequate; RBC Distribution Width 16.4 % (11.5-14.5); Red Blood Cell (RBC) Count 3.12 mill/uL (4.20-5.40); White Blood Cell (WBC) Count 4.6 thou/uL (4.8-10.8)
[2019-08-23 05:28] LABS: Anion Gap 10 mmol/L (10-20); BUN (Urea Nitrogen) 12 mg/dL (9.8-20.1); Calc. Creatinine Clearance 76 mL/min (70-130); Carbon Dioxide 22 mmol/L (23-31); Chloride 99 mmol/L (98-107); Estimated GFR-MDRD 74; Glucose 96 mg/dL (83-110); Potassium 4.3 mmol/L (3.5-5.1); Sodium 127 mmol/L (136-145)
[2019-08-23] MEDS: Levothyroxine Sodium 125 MCG TAB PO SCH (05:47)
[2019-08-23] MEDS: Mometasone 100 MCG/Formoterol 5 MCG 120 PUFF INHALER INH SCH ×2 (07:35→19:03)
[2019-08-23] MEDS: Lidocaine 5% Patch TD SCH (10:22)
[2019-08-23] MEDS: Polyethylene Glycol 3350 17 GM Packet PO SCH (10:22)
[2019-08-23] MEDS: Carvedilol 6.25 MG TAB PO SCH ×2 (10:23→15:58)
[2019-08-23] MEDS: DULoxetine 30 MG CAP PO SCH (10:25)
[2019-08-23] MEDS: Aspirin 81 mg Enteric Coated Tablet PO SCH (10:25)
[2019-08-23] MEDS: Multivitamin W/ Minerals 1 TAB PO SCH (10:25)
[2019-08-23] MEDS: Insulin Glargine 15 UNITS in Pre-Filled Syringe 1 EACH SC SCH ×2 (10:27→20:38)
[2019-08-23] MEDS: Pantoprazole 40 MG VIAL IVP SCH ×2 (10:27→20:36)
[2019-08-23] MEDS: Heparin 5,000 UNITS/ML VIAL SC SCH ×3 (10:27→20:37)
--- NOTE | 2019-08-23 14:13 | PDOC.HOSPP ---
- Subjective Encounter Date: 08/23/19 Subjective: Status unchanged. Awaiting placement. - Objective Vital Signs & Weight: Vital Signs (12 hours) Temp Pulse Pulse Pulse Resp BP BP 08/23/19 12:00 98.5 F 78 16 08/23/19 10:23 153/70 H 08/23/19 09:00 91 94 122/58 L 08/23/19 08:00 08/23/19 07:44 97.7 F 87 18 08/23/19 07:35 86 16 08/23/19 03:50 98.8 F 83 18 BP BP Pulse Ox 08/23/19 12:00 135/63 97 08/23/19 10:23 08/23/19 09:00 141/65 H 08/23/19 08:00 100 08/23/19 07:44 153/70 H 100 08/23/19 07:35 95 08/23/19 03:50 150/70 H 97 Weight Weight 179 lb 5 oz I&O: 08/22/19 08/23/19 08/24/19 06:59 06:59 06:59 Intake Total 4878 640 610 Output Total 3000 3700 525 Balance 1878 -3060 85 Result Diagrams: 08/23/19 04:28 08/23/19 04:28 Additional Labs: Accuchecks 08/23/19 08/22/19 08/22/19 06:29 19:58 17:22 POC Glucose 108 217 H 107 Hospitalist ROS - Medication Medications: Active Medications Generic Name Dose Route Start Last Admin Trade Name Freq PRN Reason Stop Dose Admin Hydrocodone Bitart/Acetaminophen 1 tab 08/17/19 20:05 08/23/19 10:24 [place] 5/325 PO 1 tab Q4H PRN Administration Moderate Pain (4-6) Aspirin 81 mg 08/22/19 09:00 08/23/19 10:25 Ecotrin PO 81 mg DAILY SHANTEL Administration Carvedilol 12.5 mg 08/18/19 17:00 08/23/19 10:23 Coreg PO 12.5 mg BID-WM SHANTEL Administration Cholecalciferol 2,000 units 08/19/19 21:00 08/22/19 20:18 Vitamin D3 PO 2,000 units HS SHANTEL Administration Duloxetine HCl 30 mg 08/19/19 09:00 08/23/19 10:25 Cymbalta PO 30 mg DAILY SHANTEL Administration Gabapentin 100 mg 08/18/19 21:00 08/22/19 20:18 Neurontin PO 100 mg HS SHANTEL Administration Heparin Sodium (Porcine) 5,000 units 08/17/19 21:00 08/23/19 10:27 Heparin SC 5,000 units TID SHANTEL Administration Insulin Glargine 15 units/ 0.15 mls @ 0 mls/hr 08/19/19 21:00 08/23/19 10:27 Miscellaneous Medication SC 0.15 mls BID SHANTEL Administration Insulin Human Lispro 0 units 08/18/19 18:23 08/22/19 11:27 Humalog SC 4 unit .MILD SLIDING SCALE PRN Administration MILD SLIDING SCALE Protocol Iron/Minerals/Multivitamins 1 tab 08/19/19 09:00 08/23/19 10:25 Theragran M PO 1 tab DAILY SHANTEL Administration Levothyroxine Sodium 125 mcg 08/19/19 06:00 08/23/19 05:47 Synthroid PO 125 mcg 0600 SHANTEL Administration Lidocaine 3 patch 08/19/19 09:00 08/23/19 10:22 Lidoderm 5% Patch TD 3 patch DAILY SHANTEL Administration Miscellaneous Medication 3 each 08/18/19 21:00 08/22/19 23:54 Lidocaine Patch Removal TOP Not Given HS SHANTEL Mometasone Furoate/Formoterol Fumar 2 puff 08/18/19 18:30 08/23/19 07:35 Dulera 100 Mcg/5 Mcg Inhaler INH 2 puff BID-RT SHANTEL Administration Pantoprazole Sodium 40 mg 08/18/19 09:00 08/23/19 10:27 Protonix IVP 40 mg Q12HR SHANTEL Administration Polyethylene Glycol 34 gm 08/19/19 09:00 08/23/19 10:22 Miralax PO 34 gm DAILY SHANTEL Administration Ropinirole HCl 4 mg 08/18/19 21:00 08/22/19 20:18 Requip PO 4 mg HS SHANTEL Administration Senna/Docusate Sodium 2 tab 08/17/19 20:05 08/23/19 10:23 Senokot S PO 2 tab BIDPRN PRN Administration Constipation Sodium Chloride 10 ml 08/18/19 07:36 08/23/19 10:25 Flush - Normal Saline IVF 10 ml PRN PRN Administration Saline Flush Trospium 20 mg 08/18/19 21:00 08/22/19 20:18 Trospium PO 20 mg HS SHANTEL Administration Venlafaxine HCl 150 mg 08/19/19 21:00 08/22/19 20:18 Effexor Xr PO 150 mg HS SHANTEL Administration - Exam General Appearance: NAD ENT: normocephalic atraumatic Neck: supple, no JVD Heart: RRR Respiratory: normal chest expansion, no tachypnea Gastrointestinal: soft, non-tender, non-distended, normal bowel sounds Hosp A/P (1) Bacteremia due to Streptococcus Code(s): R78.81 - BACTEREMIA; B95.5 - UNSP STREPTOCOCCUS THE CAUSE OF DISEASES CLASSD ELSWHR Status: Acute (2) Right femoral fracture Code(s): S72.91XA - UNSP FRACTURE OF RIGHT FEMUR, INIT FOR CLOS FX Status: Acute Qualifiers: Encounter type: subsequent encounter Femur location: neck, unspecified portion Fracture type: closed (3) UTI (urinary tract infection) Status: Acute Qualifiers: Urinary tract infection type: acute cystitis Hematuria presence: without hematuria Qualified Code(s): N30.00 - Acute cystitis without hematuria (4) FTT (failure to thrive) in adult Status: Chronic - Plan The patient is not a candidate for surgical intervention per orthopedic surgery due to her multiple comorbidities. The patient and her disagreed with this plan and asked to meet the surgeon. After the meeting yesterday they are onboard with the non operative management. SNF placement pending. On aspirin for VTE ppx. NA+ is low at 127. DC low salt diet. E. coli growing in the urine and none hemolytic streptococci growing in the blood. Abdominal wall hematoma was drained which showing no significant growth. Patient currently is on IV ceftriaxone. Transitioning to PO Keflex for 10 days per ID. ID is assisting us on managing the antibiotics.
[2019-08-23] MEDS: Cephalexin 250 MG CAP PO SCH ×2 (18:26→23:39)
[2019-08-23] MEDS: Venlafaxine HCl XR 150 MG CAP PO SCH (20:38)
[2019-08-23] MEDS: Gabapentin 100 MG CAP PO SCH (20:49)
[2019-08-23] MEDS: Trospium 20 MG TAB PO SCH (21:06)
[2019-08-23] MEDS: rOPINIRole HCl 1 MG TAB PO SCH (21:06)
[2019-08-23] MEDS: Lidocaine Patch Removal 1 EACH TOP SCH (23:34)
[2019-08-24] MEDS: Mometasone 100 MCG/Formoterol 5 MCG 120 PUFF INHALER INH SCH ×2 (05:06→18:54)
[2019-08-24] MEDS: Cephalexin 250 MG CAP PO SCH ×4 (05:22→23:15)
[2019-08-24] MEDS: Levothyroxine Sodium 125 MCG TAB PO SCH (05:22)
[2019-08-24 05:57] LABS: Anion Gap 12 mmol/L (10-20); BUN (Urea Nitrogen) 10 mg/dL (9.8-20.1); Calc. Creatinine Clearance 78 mL/min (70-130); Carbon Dioxide 19 mmol/L (23-31); Chloride 98 mmol/L (98-107); Estimated GFR-MDRD 77; Glucose 80 mg/dL (83-110); Potassium 4.1 mmol/L (3.5-5.1); Sodium 125 mmol/L (136-145)
[2019-08-24 06:02] LABS: Band 3 % (5-11); Eosinophils 7 % (0-10); Hemoglobin 9.3 g/dL (12.0-16.0); Lymphocytes 26 % (21-51); MDiff Complete? YES; Mean Corpuscular HGB CONC 32.3 g/dL (32.0-36.0); Mean Corpuscular Hemoglobin 28.2 pg (27.0-31.0); Mean Corpuscular Volume 87.3 fL (78.0-98.0); Mean Platelet Volume 6.8 fL (7.4-10.4); Monocytes 8 % (0-10); Neutrophil 56 % (42-75); Platelet Count 202 thou/uL (130-400); RBC Distribution Width 16.5 % (11.5-14.5); Red Blood Cell (RBC) Count 3.29 mill/uL (4.20-5.40); White Blood Cell (WBC) Count 4.5 thou/uL (4.8-10.8)
[2019-08-24] MEDS: HYDROcodone/Acetaminophen 5/325 mg Tablet PO PRN ×3 (09:02→18:08)
[2019-08-24] MEDS: Carvedilol 6.25 MG TAB PO SCH ×2 (09:03→16:42)
[2019-08-24] MEDS: Multivitamin W/ Minerals 1 TAB PO SCH (09:04)
[2019-08-24] MEDS: Polyethylene Glycol 3350 17 GM Packet PO SCH (09:04)
[2019-08-24] MEDS: DULoxetine 30 MG CAP PO SCH (09:04)
[2019-08-24] MEDS: Lidocaine 5% Patch TD SCH (09:04)
[2019-08-24] MEDS: Aspirin 81 mg Enteric Coated Tablet PO SCH (09:04)
[2019-08-24] MEDS: Pantoprazole 40 MG VIAL IVP SCH ×2 (09:05→20:10)
[2019-08-24] MEDS: Insulin Glargine 15 UNITS in Pre-Filled Syringe 1 EACH SC SCH ×2 (09:05→20:11)
[2019-08-24] MEDS: Heparin 5,000 UNITS/ML VIAL SC SCH ×3 (09:05→20:11)
[2019-08-24] MEDS: HumaLOG 300 UNITS/3 ML VIAL SC PRN ×2 (13:24→16:43)
[2019-08-24] MEDS ORDERED: Fleet Enema 133 ML BOT PR SCH (13:30)
--- NOTE | 2019-08-24 13:38 | PDOC.HOSPP ---
- Subjective Encounter Date: 08/24/19 Subjective: No bowel movements since admission per nursing staff - Objective Vital Signs & Weight: Vital Signs (12 hours) Temp Pulse Resp BP BP BP Pulse Ox 08/24/19 11:09 98.2 F 74 18 119/68 96 08/24/19 09:03 139/72 08/24/19 08:58 94 L 08/24/19 07:44 99.0 F 77 18 139/72 94 L 08/24/19 05:06 83 16 96 08/24/19 04:00 97.6 F 74 20 112/69 96 Weight Weight 179 lb 5 oz I&O: 08/23/19 08/24/19 08/25/19 06:59 06:59 06:59 Intake Total 640 1207 600 Output Total 3700 4250 400 Balance -3060 -3043 200 Result Diagrams: 08/24/19 05:05 08/24/19 05:05 Additional Labs: Accuchecks 08/24/19 08/24/19 08/23/19 13:02 06:18 20:32 POC Glucose 224 H 92 165 H 08/23/19 11:26 POC Glucose 203 H Hospitalist ROS - Medication Medications: Active Medications Generic Name Dose Route Start Last Admin Trade Name Freq PRN Reason Stop Dose Admin Hydrocodone Bitart/Acetaminophen 1 tab 08/17/19 20:05 08/24/19 13:23 [place] 5/325 PO 1 tab Q4H PRN Administration Moderate Pain (4-6) Aspirin 81 mg 08/22/19 09:00 08/24/19 09:04 Ecotrin PO 81 mg DAILY SHANTEL Administration Carvedilol 12.5 mg 08/18/19 17:00 08/24/19 09:03 Coreg PO 12.5 mg BID-WM SHANTEL Administration Cephalexin 250 mg 08/23/19 18:00 08/24/19 13:23 Keflex PO 250 mg Q6HR SHANTEL Administration Cholecalciferol 2,000 units 08/19/19 21:00 08/23/19 20:37 Vitamin D3 PO 2,000 units HS SHANTEL Administration Duloxetine HCl 30 mg 08/19/19 09:00 08/24/19 09:04 Cymbalta PO 30 mg DAILY SHANTEL Administration Gabapentin 100 mg 08/18/19 21:00 08/23/19 20:49 Neurontin PO 100 mg HS SHANTEL Administration Heparin Sodium (Porcine) 5,000 units 08/17/19 21:00 08/24/19 09:05 Heparin SC 5,000 units TID SHANTEL Administration Insulin Glargine 15 units/ 0.15 mls @ 0 mls/hr 08/19/19 21:00 08/24/19 09:05 Miscellaneous Medication SC 0.15 mls BID SHANTEL Administration Insulin Human Lispro 0 units 08/18/19 18:23 08/24/19 13:24 Humalog SC 3 unit .MILD SLIDING SCALE PRN Administration MILD SLIDING SCALE Protocol Iron/Minerals/Multivitamins 1 tab 08/19/19 09:00 08/24/19 09:04 Theragran M PO 1 tab DAILY SHANTEL Administration Levothyroxine Sodium 125 mcg 08/19/19 06:00 08/24/19 05:22 Synthroid PO 125 mcg 0600 SHANTEL Administration Lidocaine 3 patch 08/19/19 09:00 08/24/19 09:04 Lidoderm 5% Patch TD 3 patch DAILY SHANTEL Administration Miscellaneous Medication 3 each 08/18/19 21:00 08/23/19 23:34 Lidocaine Patch Removal TOP Not Given HS SHANTEL Mometasone Furoate/Formoterol Fumar 2 puff 08/18/19 18:30 08/24/19 05:06 Dulera 100 Mcg/5 Mcg Inhaler INH 2 puff BID-RT SHANTEL Administration Pantoprazole Sodium 40 mg 08/18/19 09:00 08/24/19 09:05 Protonix IVP 40 mg Q12HR SHANTEL Administration Polyethylene Glycol 34 gm 08/19/19 09:00 08/24/19 09:04 Miralax PO 34 gm DAILY SHANTEL Administration Ropinirole HCl 4 mg 08/18/19 21:00 08/23/19 21:06 Requip PO 4 mg HS SHANTEL Administration Senna/Docusate Sodium 2 tab 08/17/19 20:05 08/23/19 10:23 Senokot S PO 2 tab BIDPRN PRN Administration Constipation Sodium Chloride 10 ml 08/18/19 07:36 08/23/19 10:25 Flush - Normal Saline IVF 10 ml PRN PRN Administration Saline Flush Trospium 20 mg 08/18/19 21:00 08/23/19 21:06 Trospium PO 20 mg HS SHANTEL Administration Venlafaxine HCl 150 mg 08/19/19 21:00 08/23/19 20:38 Effexor Xr PO 150 mg HS SHANTEL Administration - Exam General Appearance: awake alert ENT: normocephalic atraumatic Neck: supple, no JVD Heart: RRR, no murmur, no gallops, no rubs, normal peripheral pulses Respiratory: CTAB, no wheezes, no rales, no ronchi, normal chest expansion Gastrointestinal: soft, non-tender, non-distended Hosp A/P (1) Bacteremia due to Streptococcus Code(s): R78.81 - BACTEREMIA; B95.5 - UNSP STREPTOCOCCUS THE CAUSE OF DISEASES CLASSD ELSWHR Status: Acute (2) Right femoral fracture Code(s): S72.91XA - UNSP FRACTURE OF RIGHT FEMUR, INIT FOR CLOS FX Status: Acute Qualifiers: Encounter type: subsequent encounter Femur location: neck, unspecified portion Fracture type: closed (3) UTI (urinary tract infection) Status: Acute Qualifiers: Urinary tract infection type: acute cystitis Hematuria presence: without hematuria Qualified Code(s): N30.00 - Acute cystitis without hematuria (4) FTT (failure to thrive) in adult Status: Chronic - Plan The patient is not a candidate for surgical intervention per orthopedic surgery due to her multiple comorbidities. The patient and her disagreed with this plan and asked to meet the surgeon. After the meeting, they are onboard with the non operative management. SNF placement pending. On aspirin and heparin for VTE ppx. NA+ is low. DC low salt diet. E. coli growing in the urine and none hemolytic streptococci growing in the blood. Abdominal wall hematoma was drained which showing no significant growth. PO Keflex for 10 days per ID. ID is assisting us on managing the antibiotics. Pt is constipated. Milk of Mag was ordered.
[2019-08-24] MEDS: Milk Of Magnesia 30 ML UDCUP PO PRN (16:42)
[2019-08-24] MEDS: Sodium Chloride 1 GM TAB PO SCH ×2 (18:07→22:15)
[2019-08-24] MEDS: rOPINIRole HCl 1 MG TAB PO SCH (20:09)
[2019-08-24] MEDS: Trospium 20 MG TAB PO SCH (20:09)
[2019-08-24] MEDS: Gabapentin 100 MG CAP PO SCH (20:10)
[2019-08-24] MEDS: Venlafaxine HCl XR 150 MG CAP PO SCH (20:10)
[2019-08-24] MEDS: Lidocaine Patch Removal 1 EACH TOP SCH (21:54)
[2019-08-25] MEDS: HYDROcodone/Acetaminophen 5/325 mg Tablet PO PRN ×5 (00:55→22:59)
[2019-08-25] MEDS: Cephalexin 250 MG CAP PO SCH ×4 (05:32→22:59)
[2019-08-25] MEDS: Levothyroxine Sodium 125 MCG TAB PO SCH (05:32)
[2019-08-25 06:08] LABS: Band 3 % (5-11); Eosinophils 9 % (0-10); Hemoglobin 8.9 g/dL (12.0-16.0); Lymphocytes 28 % (21-51); MDiff Complete? YES; Mean Corpuscular Hemoglobin 28.5 pg (27.0-31.0); Mean Corpuscular Volume 86.5 fL (78.0-98.0); Mean Platelet Volume 6.7 fL (7.4-10.4); Monocytes 8 % (0-10); Neutrophil 52 % (42-75); Platelet Count 187 thou/uL (130-400); Platelet Morphology Comment Appears Adequate; RBC Distribution Width 16.4 % (11.5-14.5); Red Blood Cell (RBC) Count 3.12 mill/uL (4.20-5.40); White Blood Cell (WBC) Count 4.7 thou/uL (4.8-10.8)
[2019-08-25 06:29] LABS: Anion Gap 12 mmol/L (10-20); BUN (Urea Nitrogen) 10 mg/dL (9.8-20.1); Calc. Creatinine Clearance 77 mL/min (70-130); Calcium 8.9 mg/dL (7.8-10.44); Carbon Dioxide 22 mmol/L (23-31); Chloride 98 mmol/L (98-107); Estimated GFR-MDRD 75; Glucose 106 mg/dL (83-110); Potassium 4.4 mmol/L (3.5-5.1); Sodium 128 mmol/L (136-145)
[2019-08-25] MEDS: Mometasone 100 MCG/Formoterol 5 MCG 120 PUFF INHALER INH SCH ×2 (07:32→18:58)
[2019-08-25] MEDS: Multivitamin W/ Minerals 1 TAB PO SCH (09:46)
[2019-08-25] MEDS: Aspirin 81 mg Enteric Coated Tablet PO SCH (09:46)
[2019-08-25] MEDS: DULoxetine 30 MG CAP PO SCH (09:46)
[2019-08-25] MEDS: Polyethylene Glycol 3350 17 GM Packet PO SCH (09:47)
[2019-08-25] MEDS: Heparin 5,000 UNITS/ML VIAL SC SCH ×3 (09:47→20:16)
[2019-08-25] MEDS: Carvedilol 6.25 MG TAB PO SCH ×2 (09:50→18:37)
[2019-08-25] MEDS: Pantoprazole 40 MG VIAL IVP SCH ×2 (09:54→20:16)
[2019-08-25] MEDS: Lidocaine 5% Patch TD SCH (09:55)
[2019-08-25] MEDS: Insulin Glargine 15 UNITS in Pre-Filled Syringe 1 EACH SC SCH ×2 (09:55→20:16)
[2019-08-25] MEDS: Sodium Chloride 1 GM TAB PO SCH ×3 (10:09→23:00)
[2019-08-25] MEDS ORDERED: GoLYTELY 4,000 ml Bottle PO SCH (10:45)
[2019-08-25] MEDS: Milk Of Magnesia 30 ML UDCUP PO PRN (10:58)
--- NOTE | 2019-08-25 13:03 | PDOC.HOSPP ---
- Subjective Encounter Date: 08/25/19 Subjective: Still no BM - Objective Vital Signs & Weight: Vital Signs (12 hours) Temp Pulse Resp BP BP BP Pulse Ox 08/25/19 10:56 98.5 F 82 16 123/65 97 08/25/19 09:50 157/69 H 08/25/19 07:27 98.3 F 79 16 157/69 H 96 08/25/19 04:00 97.9 F 76 16 128/70 98 08/25/19 01:30 98.5 F 74 20 146/68 H 98 Weight Weight 179 lb 5 oz I&O: 08/24/19 08/25/19 08/26/19 06:59 06:59 06:59 Intake Total 1207 1425 Output Total 8545 2800 Balance -9575 -9738 Result Diagrams: 08/25/19 05:29 08/25/19 05:29 Additional Labs: Accuchecks 08/25/19 08/25/19 08/24/19 10:53 05:39 19:58 POC Glucose 162 H 116 H 226 H 08/24/19 08/24/19 16:12 13:02 POC Glucose 169 H 224 H Hospitalist ROS - Medication Medications: Active Medications Generic Name Dose Route Start Last Admin Trade Name Freq PRN Reason Stop Dose Admin Hydrocodone Bitart/Acetaminophen 1 tab 08/17/19 20:05 08/25/19 09:56 [place] 5/325 PO 1 tab Q4H PRN Administration Moderate Pain (4-6) Aspirin 81 mg 08/22/19 09:00 08/25/19 09:46 Ecotrin PO 81 mg DAILY SHANETL Administration Carvedilol 12.5 mg 08/18/19 17:00 08/25/19 09:50 Coreg PO 12.5 mg BID-WM SHANTEL Administration Cephalexin 250 mg 08/23/19 18:00 08/25/19 12:42 Keflex PO 250 mg Q6HR SHANTEL Administration Cholecalciferol 2,000 units 08/19/19 21:00 08/24/19 20:10 Vitamin D3 PO 2,000 units HS SHANTEL Administration Duloxetine HCl 30 mg 08/19/19 09:00 08/25/19 09:46 Cymbalta PO 30 mg DAILY SHANTEL Administration Gabapentin 100 mg 08/18/19 21:00 08/24/19 20:10 Neurontin PO 100 mg HS SHANTEL Administration Heparin Sodium (Porcine) 5,000 units 08/17/19 21:00 08/25/19 09:47 Heparin SC 5,000 units TID SHANTEL Administration Insulin Glargine 15 units/ 0.15 mls @ 0 mls/hr 08/19/19 21:00 08/25/19 09:55 Miscellaneous Medication SC 0.15 mls BID SHANTEL Administration Insulin Human Lispro 0 units 08/18/19 18:23 08/24/19 16:43 Humalog SC 2 unit .MILD SLIDING SCALE PRN Administration MILD SLIDING SCALE Protocol Iron/Minerals/Multivitamins 1 tab 08/19/19 09:00 08/25/19 09:46 Theragran M PO 1 tab DAILY SHANTEL Administration Levothyroxine Sodium 125 mcg 08/19/19 06:00 08/25/19 05:32 Synthroid PO 125 mcg 0600 SHANTEL Administration Lidocaine 3 patch 08/19/19 09:00 08/25/19 09:55 Lidoderm 5% Patch TD 3 patch DAILY SHANTEL Administration Magnesium Hydroxide 30 ml 08/24/19 13:35 08/25/19 10:58 Milk Of Magnesium PO 30 ml DAILYPRN PRN Administration Constipation Miscellaneous Medication 3 each 08/18/19 21:00 08/24/19 21:54 Lidocaine Patch Removal TOP 3 each HS SHANTEL Administration Mometasone Furoate/Formoterol Fumar 2 puff 08/18/19 18:30 08/25/19 07:32 Dulera 100 Mcg/5 Mcg Inhaler INH 2 puff BID-RT SHANTEL Administration Pantoprazole Sodium 40 mg 08/18/19 09:00 08/25/19 09:54 Protonix IVP 40 mg Q12HR SHANTEL Administration Polyethylene Glycol 34 gm 08/19/19 09:00 08/25/19 09:47 Miralax PO 34 gm DAILY SHANTEL Administration Ropinirole HCl 4 mg 08/18/19 21:00 08/24/19 20:09 Requip PO 4 mg HS SHANTEL Administration Senna/Docusate Sodium 2 tab 08/17/19 20:05 08/23/19 10:23 Senokot S PO 2 tab BIDPRN PRN Administration Constipation Sodium Chloride 10 ml 08/18/19 07:36 08/25/19 09:54 Flush - Normal Saline IVF 10 ml PRN PRN Administration Saline Flush Sodium Chloride 1 gm 08/24/19 15:00 08/25/19 10:09 Sodium Chloride PO Not Given TID SHANTEL Trospium 20 mg 08/18/19 21:00 08/24/19 20:09 Trospium PO 20 mg HS SHANTEL Administration Venlafaxine HCl 150 mg 08/19/19 21:00 08/24/19 20:10 Effexor Xr PO 150 mg HS SHANTEL Administration - Exam General Appearance: NAD ENT: normocephalic atraumatic Neck: supple, no JVD Heart: RRR, no murmur, no gallops, no rubs Respiratory: CTAB, no wheezes, no rales, no ronchi Gastrointestinal: soft, non-tender, non-distended, normal bowel sounds Hosp A/P (1) Bacteremia due to Streptococcus Code(s): R78.81 - BACTEREMIA; B95.5 - UNSP STREPTOCOCCUS THE CAUSE OF DISEASES CLASSD ELSWHR Status: Acute (2) Right femoral fracture Code(s): S72.91XA - UNSP FRACTURE OF RIGHT FEMUR, INIT FOR CLOS FX Status: Acute Qualifiers: Encounter type: subsequent encounter Femur location: neck, unspecified portion Fracture type: closed (3) UTI (urinary tract infection) Status: Acute Qualifiers: Urinary tract infection type: acute cystitis Hematuria presence: without hematuria Qualified Code(s): N30.00 - Acute cystitis without hematuria (4) FTT (failure to thrive) in adult Status: Chronic (5) Closed right hip fracture Code(s): S72.001A - FRACTURE OF UNSP PART OF NECK OF RIGHT FEMUR, INIT Status : Acute Plan: poa (6) Constipation Code(s): K59.00 - CONSTIPATION, UNSPECIFIED Status: Acute (7) Hyponatremia Code(s): E87.1 - HYPO-OSMOLALITY AND HYPONATREMIA Status: Acute - Plan The patient is not a candidate for surgical intervention per orthopedic surgery due to her multiple comorbidities. The patient and her disagreed with this plan and asked to meet the surgeon. After the meeting, they are onboard with the non operative management. SNF placement pending. On aspirin and heparin for VTE ppx. NA+ is low. DC low salt diet. Start salt tablets. E. coli growing in the urine and none hemolytic streptococci growing in the blood. Abdominal wall hematoma was drained which showing no significant growth. PO Keflex for 10 days per ID. ID is assisting us on managing the antibiotics. Pt is still constipated. Stephanie.
[2019-08-25] MEDS: Trospium 20 MG TAB PO SCH (20:17)
[2019-08-25] MEDS: Gabapentin 100 MG CAP PO SCH (20:17)
[2019-08-25] MEDS: Venlafaxine HCl XR 150 MG CAP PO SCH (20:17)
[2019-08-25] MEDS: rOPINIRole HCl 1 MG TAB PO SCH (20:17)
[2019-08-25] MEDS: Lidocaine Patch Removal 1 EACH TOP SCH (22:58)
[2019-08-26] MEDS: Levothyroxine Sodium 125 MCG TAB PO SCH (05:51)
[2019-08-26] MEDS: Cephalexin 250 MG CAP PO SCH ×2 (05:51→11:10)
[2019-08-26] MEDS: Mometasone 100 MCG/Formoterol 5 MCG 120 PUFF INHALER INH SCH (08:04)
[2019-08-26] MEDS: Aspirin 81 mg Enteric Coated Tablet PO SCH (08:31)
[2019-08-26] MEDS: Carvedilol 6.25 MG TAB PO SCH (08:31)
[2019-08-26] MEDS: DULoxetine 30 MG CAP PO SCH (08:31)
[2019-08-26] MEDS: Polyethylene Glycol 3350 17 GM Packet PO SCH (08:31)
[2019-08-26] MEDS: Pantoprazole 40 MG VIAL IVP SCH (08:31)
[2019-08-26] MEDS: Multivitamin W/ Minerals 1 TAB PO SCH (08:32)
[2019-08-26] MEDS: Insulin Glargine 15 UNITS in Pre-Filled Syringe 1 EACH SC SCH (08:32)
[2019-08-26] MEDS: Lidocaine 5% Patch TD SCH (08:32)
[2019-08-26] MEDS: Heparin 5,000 UNITS/ML VIAL SC SCH ×2 (08:32→14:17)
[2019-08-26] MEDS: Sodium Chloride 1 GM TAB PO SCH ×2 (09:12→14:17)
[2019-08-26] MEDS: HYDROcodone/Acetaminophen 5/325 mg Tablet PO PRN ×2 (09:54→16:54)
[2019-08-26] MEDS: HumaLOG 300 UNITS/3 ML VIAL SC PRN (13:29)
[2019-08-26 16:30] VITALS: BP 123/64; TEMP 98.3
--- NOTE | 2019-08-27 11:57 | DIS ---
DATE OF ADMISSION: 08/17/2019 DATE OF DISCHARGE: 08/26/2019 DISCHARGE DIAGNOSES: 1. Bacteremia due to Streptococcus. 2. Right femoral fracture. 3. Urinary tract infection. 4. Failure to thrive. 5. Constipation. 6. Hyponatremia. DISCHARGE MEDICATIONS: 1. Tylenol No. 3 one to two tablets q.4 to 6 hours as needed for pain. 2. Albuterol sulfate inhaled two puffs as needed for wheezing. 3. Symbicort 80/4.5 two puffs inhaled twice daily. 4. Carvedilol 12.5 mg orally daily. 5. Keflex 250 mg orally q.6 hours, for 24 tablets. 6. Duloxetine 30 mg orally daily. 7. Toviaz 4 mg orally nightly. 8. Gabapentin 100 mg orally nightly. 9. Insulin detemir 30 units subcu at bedtime. 10. Levothyroxine 125 mcg orally daily. 11. Lidocaine patch, three patches daily, 5%. 12. Nifedipine 30 mg orally daily. 13. Nitroglycerin 0.4 mg sublingual as needed for chest pain. 14. MiraLAX 34 g orally daily. 15. Ropinirole 4 mg orally nightly. 16. Senokot two tablets orally nightly as needed for constipation. 17. Tizanidine 4 mg orally three times a day. 18. Torsemide 20 mg orally twice daily. 19. Tramadol 50 mg orally q.6 hours as needed for pain. HISTORY OF PRESENT ILLNESS AND BRIEF HOSPITAL COURSE: The patient is an 79-year -old female with history of diabetes, osteoarthritis, mobility impairment, and multiple back surgeries with chronic pain, who was brought to the hospital after sustaining a fall at home. Initially, she underwent a CT scan, which did not show any hip abnormalities. Over the course of 2 weeks, the patient's right hip pain got worse to the point that she was not able to move her lower extremity at all. This has prompted her to present to the emergency department, where repeat imaging studies revealed comminuted right proximal femoral intertrochanteric fracture. The patient was subsequently admitted to the hospital and evaluated by the Orthopedic Surgery Service, where she was deemed to be high risk for surgical repair and nonoperative management was recommended. The patient was also tested positive for UTI, which eventually grew Escherichia coli. This was managed with IV antibiotics per the culture and sensitivity data, and the patient has completed the course of antibiotics for the E coli. Her blood culture showed growth of Streptococci of unclear source. Of note, the patient had a pain pump removed recently and around the surgical area, a fluid collection was noted. This was drained, revealing hematoma with no bacteria. However, this was done after the patient was already on antibiotics. The source of the Streptococcus is not clear, but could be from the fluid collection. ID Service was consulted and the patient was managed with IV antibiotics. At the time of discharge, I do recommend switching the antibiotics to oral Keflex. The patient does not have any signs of sepsis at this time. Job ID: [id number] [facility]
--- NOTE | 2019-09-20 20:52 | PQF ---
DATE: 09-20-19 ATTN: DR. KATIE COLVIN Please exercise your independent, professional judgment in responding to the clarification form. Clinical indicators are provided on the bottom of this form for your review Please check appropriate box(s) to clarify if the following diagnosis has been ruled in or ruled out: SEPSIS [ > ] Ruled in diagnosis [ ] Continue to treat [ ] Resolved [ ] Ruled out diagnosis [ ] Other diagnosis [ ] Unable to determine In addition, please specify: Present on Admission (POA): [ > ] Yes [ ] No [ ] Unable to determine For continuity of documentation, please document condition throughout progress notes and discharge summary. Thank You. CLINICAL INDICATORS - SIGNS / SYMPTOMS / LABS / RESULTS AND LOCATION IN MR: ER DX 08-17-19: HIP FRACTURE, SEPSIS, UTI ER NOTES 08-17-19: PT WAS TRANSFERRED FROM [facility] WITH PAIN AND POSSIBLE SEPSIS, REPORTS FEVER PN DR. RODRIGUEZ 08-19-19: SEPSIS, BACTEREMIA CHRISTEL TO STREP, UTI, R FEMORAL FX , MODERATE MALNUTRITION, RACHAEL, SZ, DM2 D/C SUMMARY DR. COLVIN 08-27-19: BACTEREMIA DUE TO STREP, R FEMORAL FX, UTI, FTT, HYPONATREMIA. THE PATIENT DOES NOT HAVE ANY SIGNS OF SEPSIS AT THIS TIME. ER RR 08-17-19: 22, 24, 24 ER PULSE 08-17-19: 130, 128, 129, 142, 130 RISK FACTORS / RESULTS AND LOCATION IN MR: ER DX 08-17-19: HIP FRACTURE, SEPSIS, UTI H&P 08-18-19: ADMITTED TO [facility] FOR SEPSIS, STREP BACTEREMIA. HER 2 OF 2 BC ARE GROWING STREP, URINE IS ALSO GROWING E COLI. SHE ALSO HAS R FEMORAL FRACTURE. TREATMENTS / RESULTS AND LOCATION IN MR: ER NOTES 08-17-19: NS IVF, VANCOMYCIN, CEFEPIME IV (This form is maintained as a part of the permanent medical record) 2014 [employer]. All Rights Reserved [email or web address]
== END 2019-08-26 16:55 | disposition swing bed (61) | DRG 871 ==
LOC: ERS 16:03 → 2NO 21:26 → SURG A 08-23 15:54
PROVIDERS: ADMIT Family Medicine; ATTEND Family Medicine
DX: A40.9 Streptococcal sepsis, unspecified (principal); S72.144A Nondisplaced intertrochanteric fracture of right femur, initial encounter for closed fracture; E87.1 Hypo-osmolality and hyponatremia; L76.32 Postprocedural hematoma of skin and subcutaneous tissue following other procedure; N30.00 Acute cystitis without hematuria; K59.00 Constipation, unspecified; R62.7 Adult failure to thrive; B96.29 Other Escherichia coli [E. coli] as the cause of diseases classified elsewhere; M54.5 Low back pain; G89.29 Other chronic pain; K75.81 Nonalcoholic steatohepatitis (NASH); K74.69 Other cirrhosis of liver; Y83.8 Other surgical procedures as the cause of abnormal reaction of the patient, or of later complication, without mention of misadventure at the time of the procedure; Z90.710 Acquired absence of both cervix and uterus; Z90.49 Acquired absence of other specified parts of digestive tract
CPT/HCPCS: 36415; 36416; 71045; 74177; 80048; 80053; 81003; 81015; 82550; 82553; 82805; 83605; 84484; 85007; 85025; 85027; 85379; 85730; 87040; 87070; 87077; 87086; 87149; 87186; 87205; 93005; 93306; 93970; 94760; 96361; 96365; 96367; 96375; 96376; C9113; J0692; J0696; J1170; J1644; J1815; J2185; J3010; J3370; J3480; J3490; Q0163; Q9967

== ENCOUNTER 2020-05-26 09:24 | Emergency (ER) | payer MEDICARE, MEDICAID ==
[2020-05-26] MEDS ORDERED: Boostrix 0.5 ML (Tdap) VIAL ONE (09:26)
[2020-05-26] MEDS ORDERED: Lidocaine 1% (PF) 30 ML VIAL ONE (09:31)
[2020-05-26 09:46] LABS: #Basophils 0.1 thou/uL (0.0-0.2); #Eosinphils 0.3 thou/uL (0.0-0.7); #Lymphocytes 1.3 thou/uL (1.20-3.40); #Monocytes 0.5 thou/uL (0.11-0.59); %Basophils 1.2 % (0.0-1.0); %Eosinophils 4.9 % (0.0-10.0); %Lymphocytes 25.4 % (21.0-51.0); %Monocytes 9.4 % (0.0-10.0); %Neutrophils 59.1 % (42.0-75.0); Mean Corpuscular HGB CONC 33.4 g/dL (32.0-36.0); Mean Corpuscular Hemoglobin 30.9 pg (27.0-31.0); Mean Corpuscular Volume 92.4 fL (78.0-98.0); Mean Platelet Volume 7.2 fL (7.4-10.4); Platelet Count 159 thou/uL (130-400); RBC Distribution Width 16.4 % (11.5-14.5); Red Blood Cell (RBC) Count 2.26 mill/uL (4.20-5.40); White Blood Cell (WBC) Count 5.1 thou/uL (4.8-10.8)
[2020-05-26 09:54] LABS: INR-International Normal Ratio 1.4
[2020-05-26 10:06] LABS: PTT 33.3 sec (22.9-36.1)
[2020-05-26] MEDS ORDERED: Calcium Gluc 4.6 MEQ/10 ML (100 MG/ML) ONE (10:22)
[2020-05-26 10:35] LABS: ALT (SGPT) 11 U/L (8-55); AST (SGOT) 25 U/L (5-34); Albumin 2.6 g/dL (3.4-4.8); Alkaline Phosphatase 99 U/L (40-110); Anion Gap 18 mmol/L (10-20); BUN (Urea Nitrogen) 24 mg/dL (9.8-20.1); Bilirubin, Total 0.9 mg/dL (0.2-1.2); Calc. Creatinine Clearance 0 mL/min (70-130); Calcium 7.6 mg/dL (7.8-10.44); Carbon Dioxide 18 mmol/L (23-31); Chloride 111 mmol/L (98-107); Glucose 144 mg/dL (83-110); Potassium 3.7 mmol/L (3.5-5.1); Protein, Total 5.6 g/dL (6.0-8.3); Sodium 143 mmol/L (136-145)
--- NOTE | 2020-05-26 10:37 | CT ---
CT Brain WO Con History: Fall from wheelchair Comparison: CT brain June 2017 Findings: No acute hemorrhage or infarct. No midline shift or mass effect. Moderate chronic microvasc ular ischemic changes. The calvarium is intact. Paranasal sinuses and mastoids are clear. Globes are intact. Impression: No acute intracranial abnormality.
--- NOTE | 2020-05-26 10:57 | CT ---
CT Chest Abd Pelvis W Con History: Fall from wheelchair Comparison: Abdomen pelvis CT August 17, 2019 Findings: Lungs are without pneumothorax or contusion. Scarring throughout the lungs. Sternum and man ubrium are intact. Advanced degenerative disease of the sternoclavicular joints. No acute clavicular fracture appreciated within the visualized portions of the clavicles. Bilateral shoulder arthroplasties and right humeral plate-screw fixation. Age-indeterminate right anterior fourth, fifth, sixth and seventh rib buckle fractures. Small volume gas within the left deltoid muscle. Healing left anterior fourth, fifth, sixth rib fractures. No acute displaced left rib fracture. Moderate reverse S-shaped scoliosis of the thoracolumbar spine. Lumbosacral fusion hardware along wit h upper lumbar spine fusion hardware similar. No new acute thoracic or lumbar spine compression deformity is appreciated. Old transversely oriented fracture through S2/S3. Old right intertrochanteric fracture right femur.. Intact left hip hardware. No acute SI joint wideni ng. No acute sacral fracture. Laminectomy changes of the lumbar spine. Small volume ascites. Congestive changes of the right:. Mild third spacing of fluid along the right a nterior hemiabdomen. Diverticulum second portion of the duodenum is similar. Mild congestive changes at the small bowel. Portal vein is patent. Similar appearance of the splenic cleft. Mild portosystemic collaterals. No acute aortic injury. Extensive paraspinal muscle atrophy. No hydronephrosis. Asymmetric small righ t kidney. Impression: 1. Age-indeterminate right fourth-seventh rib buckle fractures. Recommend correlation with focal tend erness. 2. Hepatic cirrhosis with portal hypertension, new onset small volume ascites, third spacing of fluid , and congestive changes of the large and small bowel. 3. Old right intertrochanteric fracture right femur. No acute pelvic fracture. 4. Healing left anterior fourth-sixth rib fractures. 5. Small volume gas within the left deltoid muscle may be injection related.
[2020-05-26] MEDS ORDERED: Cefepime 2 GM VIAL ONE (11:11)
--- NOTE | 2020-05-26 11:22 | RAD ---
XR Foot Rt 2 View History: Laceration Comparison: None. Findings: Extensive soft tissue swelling. Osseous demineralization. Lisfranc interval is limited due to overlying sheets. Impression: Soft tissue swelling and osseous demineralization. Limited exam. No acute definite fractu re.
--- NOTE | 2020-05-26 11:24 | RAD ---
EXAM: Single view of the chest HISTORY: Chest pain after falling out of a wheelchair COMPARISON: 08/17/2019 FINDINGS: Single view of the chest shows an enlarged cardiomediastinal silhouette. The bilateral pulm onary vasculature are enlarged. Atherosclerotic calcifications are seen in the aorta. Diffuse increased interstitial markings are present. There is no evidence of consolidation, mass, or pleural effusion. Degenerative changes are seen in the spine. A spinal stimulation device is visualized in the midthoracic spine. The patient has bilateral shoulder arthroplasties. IMPRESSION: Cardiomegaly. The increased interstitial lung markings may represent pulmonary edema
[2020-05-26 11:42] LABS: Bacteria/HPF 4+ HPF (None Seen); Bilirubin Negative (Negative); Blood, Urine Negative (Negative); Calcium Oxalate Crystals Rare HPF (None Seen); Clarity Clear (Clear); Glucose, Urine (Dipstick) Normal (Negative); Ketone, Urine Negative (Negative); Leukocyte 250 Leu/uL (Negative); Nitrite 2+ (Negative); Protein, Urine (Dipstick) Negative (Neg-Trace); RBC/HPF 0-3 HPF (0-3); Specific Gravity, Urine 1.022 (1.002-1.036); Squamous Epithelial 0-3 HPF (0-3); Urobilinogen Normal mg/dL (Less than 2); WBC/HPF 21-50 HPF (0-3)
[2020-05-26] MEDS ORDERED: Vancomycin 1 GM/200 ML BAG ONE (11:50)
[2020-05-26] MEDS ORDERED: EPINEPHrine 4 MG in Dextrose 5% in Water 250 ML IV SCH (12:30)
[2020-05-26] MEDS ORDERED: Norepinephrine 8 MG in Dextrose 5% in Water 250 ML IVPB SCH (12:30)
[2020-05-26] MEDS ORDERED: Norepinephrine 8 MG in Sodium Chloride 0.9% 250 ML 250 ML IVPB SCH (12:30)
[2020-05-26] MEDS ORDERED: Norepinephrine 8 MG/0.9% NS 250 ML IVPB SCH (12:30)
--- NOTE | 2020-05-26 13:51 | RAD ---
AP CHEST: Date: 05/26/2020 INDICATION: Line placement. COMPARISON: Film from earlier today. FINDINGS/IMPRESSION: The patient is rotated to the right, which distorts the chest. There is cardiomegaly with vascular co ngestion and evidence of interstitial edema, similar to the film from earlier today. Epidural leads o verlying the spine are unchanged. No other evidence of line or catheter identified. POS: AGW
[2020-05-26 14:12] LABS: SARS-CoV-2 NAA Rapid Test Not Detected (NotDetected)
--- NOTE | 2020-05-31 15:20 | EKG ---
Test Reason : Blood Pressure : / mmHG Vent. Rate : 127 BPM Atrial Rate : 127 BPM P-R Int : 112 ms QRS Dur : 084 ms QT Int : 320 ms P-R-T Axes : 043 026 -22 degrees QTc Int : 465 ms Sinus tachycardia with Premature atrial complexes T wave abnormality, consider inferior ischemia Abnormal ECG Confirmed by SANTANA LUCIANO DO ([id number]), proposal editor SERGE ULRICH ([id number]) on 05/31/2020 3:19:58 PM Referred By: Confirmed By:SANTANA LUCIANO DO
== END 2020-05-26 15:30 | disposition short-term general hospital (02) ==
LOC: ERS 09:24
DX: A41.9 Sepsis, unspecified organism (principal); N39.0 Urinary tract infection, site not specified; R65.21 Severe sepsis with septic shock; S91.311A Laceration without foreign body, right foot, initial encounter; I95.9 Hypotension, unspecified; E11.9 Type 2 diabetes mellitus without complications; E03.9 Hypothyroidism, unspecified; K21.9 Gastro-esophageal reflux disease without esophagitis; Z79.4 Long term (current) use of insulin; Z79.899 Other long term (current) drug therapy; W22.8XXA Striking against or struck by other objects, initial encounter
CPT/HCPCS: 0240U; 36415; 36430; 70450; 71045; 71260; 74177; 80053; 81015; 83605; 85025; 85610; 85730; 86850; 86900; 86901; 87040; 87086; 90715; 93005; 94760; G0390; J0171; J0690; J0692; J2001; J3370; J7050; J7070; P9016